=== PATIENT | female | born 1960 | race Caucasian/White ===

== ENCOUNTER → 2016-11-25 | Outpatient (CLI) | payer BC ==
[~2016-11-25] MED LIST: ASPI81TA85 PO; IBUP80TA PO; INVO300T PO; LEVOTAB10 PO; LISI10TA4 PO; METF750T PO; OMEP40CA2 PO; ONGL1TAB9 PO; PERC5TAB6 PO; VENL75CA47 PO; VENL75TA3 PO
--- NOTE | 2016-11-25 11:56 | REPMRS ---
Patient History The patient states she had a clinical breast exam in September 2016. Patient is postmenopausal. No known family history of cancer. Took hormonal contraceptives for 4 years. Digital Mammo Screening Bilat: November 25, 2016 - Exam #: [id number] Bilateral CC and MLO view(s) were taken. Technologist: Felecia Kramer, Technologist Prior study comparison: November 16, 2015, bilateral digital mammo screening bilat performed at [facility]. November 12, 2014, bilateral bilat screen digital mammo, performed at [facility] ([facility]). October 15, 2013, bilateral bilat screen digital mammo, performed at [facility] ([facility]). FINDINGS: The breast tissue is almost entirely fat. There has been no change in the appearance of the mammogram from the prior studies. There is no interval development of dominant mass, architectural distortion, or clustered microcalcification typical of malignancy. ASSESSMENT: BI-RADS/ACR category 1 mammogram. Negative. Recommendation Routine screening mammogram of both breasts in 1 year (for women over age 40). This mammogram was interpreted with the aid of an FDA-approved computer-aided dectection system. Electronically Signed By: Rusty Black MD 11/25/16 0660
== END ==
LOC: M RAD 10:34
PROVIDERS: ATTEND Obstetrics & Gynecology
DX: Z12.31 Encounter for screening mammogram for malignant neoplasm of breast (principal)

== ENCOUNTER 2017-01-06 10:11 | Emergency (ER) | payer BC ==
[2017-01-06] MEDS ORDERED: ASPIRIN 81 MG CHEW TABLET As Ordered ONE (10:35)
[2017-01-06] MEDS ORDERED: NITROGLYCERIN 0.4 MG SUBL TABLET As Ordered ONE (10:36)
[2017-01-06 10:42] LABS: BASO % 0.5 % (0.0-1.0); EOS # 0.2 K/mm3 (0.0-0.50); EOS % 2.9 % (0.0-3.0); LARGE UNSTAINED CELL # 0.1 K/mm3 (0.0-0.4); LARGE UNSTAINED CELL % 1.7 % (0.0-4.0); LYMPH # 2.4 K/mm3 (1.5-4.5); LYMPH % 41.8 % (24.0-44.0); MEAN CORPUSCULAR HEMOGLOBIN 29.3 pg (27.0-33.0); MEAN CORPUSCULAR VOLUME 88.9 fl (80.0-96.0); MONO # 0.2 K/mm3 (0.0-0.8); NEUTROPHILS # 2.7 K/mm3 (1.8-7.7); NEUTROPHILS % 49.1 % (36.0-66.0); PLATELET COUNT, AUTOMATED 233 k/mm3 (150-450); RED CELL DISTRIBUTION WIDTH 13.6 % (11.5-14.5); WHITE BLOOD COUNT 5.5 K/mm3 (4.0-10.0)
[2017-01-06 11:07] LABS: ALBUMIN 3.7 GM/DL (3.2-5.2); ALBUMIN/GLOBULIN RATIO 0.97 (1.00-1.93); ALKALINE PHOSPHATASE 85 U/L (45-117); ALT/SGPT 144 U/L (12-78); ANION GAP 10 MEQ/L (8-16); AST/SGOT 106 U/L (15-37); BILIRUBIN,DIRECT < 0.1 MG/DL (0.0-0.2); BILIRUBIN,TOTAL 0.3 MG/DL (0.2-1.0); BLOOD UREA NITROGEN 9 MG/DL (7-18); CALCIUM LEVEL 9.1 MG/DL (8.5-10.1); CARBON DIOXIDE LEVEL 26 MEQ/L (21-32); CHLORIDE LEVEL 105 MEQ/L (98-107); CREATININE FOR GFR 0.53 MG/DL (0.55-1.02); GLOMERULAR FILTRATION RATE > 60.0 (>51); GLUCOSE, FASTING 102 MG/DL (70-105); POTASSIUM SERUM 3.7 MEQ/L (3.5-5.1); SODIUM LEVEL 141 MEQ/L (136-145); TOTAL PROTEIN 7.5 GM/DL (6.4-8.2)
--- NOTE | 2017-01-06 11:26 | REP ---
clinical: Chest pain . Comparison: 03/13/2012 . Findings: The mediastinum and cardiac silhouette are stable and within normal limits for portable technique. The lung leung are clear without acute consolidation, effusion, or pneumothorax. Skeletal structures are intact. Impression: Normal portable chest x-ray Signed by Khang Beck MD 01/06/2017 11:17 A
[2017-01-06] MEDS ORDERED: GI COCKTAIL 50ML BTL(HYOSCYAMINE/MAALOX/LIDOCAINE VISCOUS)(1:3:1) As Ordered ONE (11:31)
--- NOTE | 2017-01-06 15:24 | ECGEPIP ---
Stationary ECG Study [facility] - ED Test Date: 2017-01-06 Pat Name: ADRIA ADHIKARI Department: Room: - Gender: F Student Life Advisor: hernandez : 1960 Requested By: Jose Daniel Baker Order Number: [id number] Reading MD: Deanne Gonsales Measurements Intervals [place] Rate: 72 P: 53 ND: 154 QRS: 28 QRSD: 91 T: 42 QT: 388 QTc: 427 Interpretive Statements SINUS RHYTHM NSTTW ABNORMALITY NO PRIOR FOR COMPARISON Electronically Signed On 01-06-2017 15:23:50 EST by Deanne Gonsales
--- NOTE | 2017-01-06 16:26 | EDDOCDS ---
Nurse's Notes [facility] Name: Adria Healy Age: 56 yrs Sex: Female : 1960 Arrival Date: 01/06/2017 Time: 10:11 Bed 15 Private MD: Diagnosis: Chest pain, unspecified;Gastro-esophageal reflux disease Presentation: 01/06 10:15 Presenting complaint: Patient states: chest pain across chest started an hour ago. srm radiates to back. no SOB. Aspirin was not taken prior to arrival. Adult Sepsis Screening: The patient does not have new or worsening altered mentation. Patient's respiratory rate is less than 22. Systolic blood pressure is greater than 100. Patient has a qSOFA score of 0- Negative Sepsis Screen. Suicide/Homicide risk assessment- the patient denies having any suicidal and/or homicidal ideations and does not present with any other emotional, behavioral or mental health complaints. Status: Patient is not a food service assistant or dependent. Transition of care: patient was not received from another setting of care. 10:15 Acuity: YOUSUF Level 2 srm 10:15 Method Of Arrival: Walkin/Carried/Asstd srm Triage Assessment: 10:25 General: Appears in no apparent distress, Behavior is appropriate for age, cooperative. srm Pain: Pain currently is 6 out of 10 on a pain scale. Cardiovascular: Chest pain is described as Pain is 6 out of 10 on a pain scale. radiates back episodes are continuous began 1 hour prior to arrival. 16:24 Pt Declines HIV testing. 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 Xyzal 5 mg oral tab 1 tab once daily 2. Singulair 10 mg Oral tab 1 tab once daily 3. omeprazole 40 mg Oral cpDR once daily 4. lisinopril 10 mg Oral tab 1 tab once daily 5. metformin 750 mg Oral Tb24 3 tabs once daily 6. Effexor XR 75 mg Oral cp24 1 cap once daily 7. aspirin 81 mg Oral tbef daily 8. Trulicity 1.5 mg/0.5 mL subcutaneous pnij once wkly - PMHx: Diabetes - NIDDM: controlled; Hypertension; GERD; mood swings; Seasonal Allergies; - PSHx: Hysterectomy; Cholecystectomy; left knee surgery; - The history from nurses notes was reviewed: and I agree with what is documented. - Social history: Smoking status: Patient states former smoker of tobacco. No barriers to communication noted, The patient speaks fluent Kazakh, Speaks appropriately for age. - Family history: Not pertinent, Pertinent for heart disease. - : The pt / caregiver states he / she is not on anticoagulants. Home medication list is obtained from the patient. - Hospitalizations: : No recent hospitalization is reported. - Exposure Risk Screening:: None identified. - Immunization history:: All immunizations up-to-date. - Social history:: the patient is a non-smoker, the patient does not drink alcohol. Screenin:25 Screening information is obtained from the patient. Fall risk: No risks identified. srm Assistance ADL's: requires no assistance with activities of daily living. Abuse/DV Screen: The patient / caregiver reports he/she is: not in a situation that causes fear, pain or injury. Nutritional screening: No deficits noted. Advance Directives: Currently, there is no health care proxy. There is no active DNR order. There is no Power of Reverberatory Furnace Supervisor. home support is adequate. Assessment: 10:41 General: Appears in no apparent distress, comfortable, Behavior is appropriate for age, srm cooperative. Neurological: Level of Consciousness is awake, alert. Cardiovascular: Rhythm is sinus rhythm Chest pain is described as mild, Pain is 4 out of 10 on a pain scale. radiates to left back. Respiratory: Airway is patent Respiratory effort is even, unlabored, Respiratory pattern is regular, symmetrical, Breath sounds are clear. Derm: Skin is pink, warm & dry. 11:34 General: Appears in no apparent distress, comfortable, Behavior is appropriate for age, js13 cooperative. Neurological: Level of Consciousness is awake, alert. Cardiovascular: Rhythm is sinus rhythm Chest pain is denied. Respiratory: Airway is patent Respiratory effort is even, unlabored, Respiratory pattern is regular, symmetrical. Derm: No deficits noted. Skin is pink, warm & dry. 12:16 Adult Sepsis Screening: The patient does not have new or worsening altered mentation. js13 Patient's respiratory rate is less than 22. Systolic blood pressure is greater than 100. Patient has a qSOFA score of 0- Negative Sepsis Screen. General: Appears in no apparent distress, comfortable, Behavior is appropriate for age, cooperative. Neurological: Level of Consciousness is awake, alert. Cardiovascular: Rhythm is sinus rhythm Chest pain is denied. Respiratory: Airway is patent Respiratory effort is even, unlabored, Respiratory pattern is regular, symmetrical. Derm: Skin is pink, warm & dry. 13:25 General: Appears in no apparent distress, comfortable, Behavior is appropriate for age, js13 cooperative. Neurological: Level of Consciousness is awake, alert. Cardiovascular: Rhythm is sinus rhythm Chest pain is denied. Respiratory: Airway is patent Respiratory effort is even, unlabored, Respiratory pattern is regular, symmetrical. Derm: Skin is pink, warm & dry. 15:20 Adult Sepsis Screening: The patient does not have new or worsening altered mentation. js13 Patient's respiratory rate is less than 22. Systolic blood pressure is greater than 100. Patient has a qSOFA score of 0- Negative Sepsis Screen. General: Appears in no apparent distress, comfortable, Behavior is appropriate for age, cooperative. Neurological: Level of Consciousness is awake, alert. Cardiovascular: Rhythm is sinus rhythm Chest pain is denied. Respiratory: Airway is patent Respiratory effort is even, unlabored, Respiratory pattern is regular, symmetrical. Derm: Skin is pink, warm & dry. 16:21 General: Appears in no apparent distress, comfortable, Behavior is appropriate for age, js13 cooperative. Neurological: Level of Consciousness is awake, alert. Cardiovascular: Rhythm is sinus rhythm Chest pain is denied. Respiratory: Airway is patent Respiratory effort is even, unlabored, Respiratory pattern is regular, symmetrical. Derm: Skin is pink, warm & dry. Vital Signs: 10:30 BP 159 / 80 RA Sitting; Pulse 68; Resp 18; Temp 97.9(O); Pulse Ox 100% on R/A; Weight srm 86.18 kg (R); Height 5 ft. (152.40 cm) (R); 10:38 BP 144 / 76 (auto/); srm 10:38 Pulse 72 MON; Resp 14; Pulse Ox 95% on R/A; srm 10:53 BP 134 / 73 (auto/); js13 10:53 Pulse 70 MON; Resp 14; Pulse Ox 98% on R/A; js13 11:08 BP 127 / 69 (auto/); js13 11:08 Pulse 68 MON; Resp 14; Pulse Ox 97% on R/A; js13 11:23 BP 121 / 74 (auto/); js13 11:23 Pulse 66 MON; Resp 14; Pulse Ox 98% on R/A; js13 11:38 BP 132 / 83 (auto/); js13 11:38 Pulse 66 MON; Resp 14; Pulse Ox 95% on R/A; js13 11:53 BP 130 / 81 (auto/); js13 11:53 Pulse 64 MON; Resp 14; Pulse Ox 98% on R/A; js13 12:08 BP 161 / 91 (auto/); js13 12:08 Pulse 64 MON; Resp 14; Pulse Ox 98% on R/A; js13 12:23 BP 158 / 90 (auto/); js13 12:23 Pulse 66 MON; Resp 14; Pulse Ox 98% on R/A; js13 12:38 BP 150 / 94 (auto/); js13 12:38 Pulse 62 MON; Resp 14; Pulse Ox 94% on R/A; js13 12:53 BP 132 / 76 (auto/); js13 12:53 Pulse 66 MON; Resp 14; Pulse Ox 95% on R/A; js13 13:08 BP 131 / 77 (auto/); js13 13:08 Pulse 64 MON; Resp 14; Pulse Ox 94% on R/A; js13 13:23 BP 129 / 78 (auto/); js13 13:23 Pulse 66 MON; Resp 14; Pulse Ox 94% on R/A; js13 13:38 BP 119 / 67 (auto/); js13 13:38 Pulse 62 MON; Resp 14; Pulse Ox 94% on R/A; js13 13:53 BP 118 / 64 (auto/); js13 13:53 Pulse 72 MON; Resp 14; Pulse Ox 95% on R/A; js13 14:08 BP 121 / 67 (auto/); js13 14:08 Pulse 62 MON; Resp 14; Pulse Ox 95% on R/A; js13 14:23 BP 122 / 66 (auto/); js13 14:23 Pulse 60 MON; Resp 14; Pulse Ox 94% on R/A; js13 14:38 BP 123 / 69 (auto/); js13 14:38 Pulse 62 MON; Resp 14; Pulse Ox 95% on R/A; js13 14:53 BP 130 / 76 (auto/); js13 14:53 Pulse 64 MON; Resp 14; Pulse Ox 96% on R/A; js13 15:09 BP 123 / 75 (auto/); js13 15:09 Pulse 70 MON; Resp 14; Pulse Ox 94% on R/A; js13 15:23 BP 131 / 76 (auto/); js13 15:23 Pulse 70 MON; Resp 14; Pulse Ox 94% on R/A; js13 15:38 BP 110 / 58 (auto/); js13 15:38 Pulse 60 MON; Resp 14; Pulse Ox 96% on R/A; js13 15:53 BP 118 / 65 (auto/); js13 15:53 Pulse 62 MON; Resp 14; Pulse Ox 95% on R/A; js13 16:08 BP 122 / 65 (auto/); js13 16:08 Pulse 66 MON; Resp 14; Pulse Ox 96% on R/A; js13 10:30 Body Mass Index 37.11 (86.18 kg, 152.40 cm) [facility] ED Course: 10:13 Patient visited by Shai Hdez. mm15 10:13 Patient moved to Waiting mm15 10:15 Kiki Leahy,AYLIN is Primary Nurse. jo3 10:15 Patient moved to 15 jo3 10:16 Triage Initiated [facility] 10:17 Jose Daniel Littlejohn MD is Attending Physician. pc 10:20 EKG done. (by ED staff). Reviewed by Jose Daniel Littlejohn MD. nb2 10:22 Patient visited by Sarah Moss. nb2 10:25 The patient / caregiver is instructed regarding the plan of care and ED course. srm Accompanied by Family Member, Patient has correct armband on for positive identification. Placed in gown. Bed in low position. Call light in reach. Side rails up X 1. alarm security or surveillance monitor on. Pulse ox on. NIBP on. 10:26 Patient visited by Collette Ruiz RN. srm 10:29 Patient visited by Jose Daniel Littlejohn MD. pc 10:30 Patient visited by Collette Ruiz RN. [facility] 10:38 Inserted saline lock: 18 gauge in left antecubital area and blood collected. The [facility] patient tolerated the procedure well. No procedures done that require assistance. Labs drawn. (by ED staff). Sent per order to lab. 10:43 Patient visited by Collette Ruiz RN. [facility] 10:48 [facility] Payment Agreement was scanned into [employer] and attached to record. lg 11:35 Patient visited by Kiki Leahy RN. js13 11:58 portable chest Returned. EDMS 12:18 Patient visited by Kiki Leahy RN. js13 13:26 Patient visited by Kiki Leahy RN. js13 14:59 Patient visited by Jose Daniel Littlejohn MD. pc 15:13 EKG done. (by ED staff). Reviewed by Jose Daniel Littlejohn MD. jrd 15:13 CARDIAC MARKER PANEL Sent. jrd 15:22 Patient visited by Kiki Leahy RN. js13 15:57 Abhijit Mcguire MD is Referral Physician. pc 16:00 Williams Fontenot MD is Referral Physician. pc 16:07 EKG-ADULT Returned. EDMS 16:08 Discontinued IV lock intact, bleeding controlled, pressure dressing applied, No js13 redness/swelling at site. Administered Medications: 10:40 Drug: Aspirin 324 mg [aspirin 81 mg chewable tablet (4 tabs)] Route: PO; srm 11:07 Follow up: Response: No Adverse Reaction js13 10:40 Drug: Nitrostat 0.4 mg [Nitrostat 0.4 mg sublingual tablet (1 tabs)] Route: Sublingual; srm 10:50 Follow up: Patient states pain stays at a 4 when it comes. Patient denies pain at this js13 time. 11:34 Drug: GI Cocktail - (Alum-Mag Hydroxide-Simeth Suspension 225 mg-200 mg-25 mg/5 mL 30 js13 ml, Lidocaine Liquid 2 % 10 ml, Hyoscyamine Liquid 10 ml) Route: PO; 12:05 Follow up: Response: No significant change. js13 Intake: RT: 11:28 Intubation:. js Order Results: Lab Order: Basic Metabolic Profile; SPEC'M 01/06/17 10:32 Test: GLUCOSE, FASTING; Value: 102; Range: 70-105; Units: MG/DL; Status: F Test: BLOOD UREA NITROGEN; Value: 9; Range: 7-18; Units: MG/DL; Status: F Test: CREATININE FOR GFR; Value: 0.53; Range: 0.55-1.02; Abnormal: Below low normal; Units: MG/DL; Status: F Test: GLOMERULAR FILTRATION RATE; Value: > 60.0; Range: >51; Status: F Test: SODIUM LEVEL; Value: 141; Range: 136-145; Units: MEQ/L; Status: F Test: POTASSIUM SERUM; Value: 3.7; Range: 3.5-5.1; Units: MEQ/L; Status: F Test: CHLORIDE LEVEL; Value: 105; Range: 98-107; Units: MEQ/L; Status: F Test: CARBON DIOXIDE LEVEL; Value: 26; Range: 21-32; Units: MEQ/L; Status: F Test: ANION GAP; Value: 10; Range: 8-16; Units: MEQ/L; Status: F Test: CALCIUM LEVEL; Value: 9.1; Range: 8.5-10.1; Units: MG/DL; Status: F Test Note: ; Units are mL/min/1.73 m2 Chronic Kidney Disease Staging per NKF: Stage I & II GFR >=60 Normal to Mildly Decreased Stage III GFR 30-59 Moderately Decreased Stage IV GFR 15-29 Severely Decreased Stage V GFR <15 Very Little GFR Left ESRD GFR <15 on FABRIC WORKER LEADER Lab Order: CBC with Diff; SPEC'M 01/06/17 10:32 Test: WHITE BLOOD COUNT; Value: 5.5; Range: 4.0-10.0; Units: K/mm3; Status: F Test: RED BLOOD COUNT; Value: 4.38; Range: 4.00-5.40; Units: M/mm3; Status: F Test: HEMOGLOBIN; Value: 12.8; Range: 12.0-16.0; Units: g/dl; Status: F Test: HEMATOCRIT; Value: 38.9; Range: 36.0-47.0; Units: %; Status: F Test: MEAN CORPUSCULAR VOLUME; Value: 88.9; Range: 80.0-96.0; Units: fl; Status: F Test: MEAN CORPUSCULAR HEMOGLOBIN; Value: 29.3; Range: 27.0-33.0; Units: pg; Status: F Test: MEAN CORPUSCULAR HGB CONC; Value: 33.0; Range: 32.0-36.5; Units: g/dl; Status: F Test: RED CELL DISTRIBUTION WIDTH; Value: 13.6; Range: 11.5-14.5; Units: %; Status: F Test: PLATELET COUNT, AUTOMATED; Value: 233; Range: 150-450; Units: k/mm3; Status: F Test: NEUTROPHILS %; Value: 49.1; Range: 36.0-66.0; Units: %; Status: F Test: LYMPH %; Value: 41.8; Range: 24.0-44.0; Units: %; Status: F Test: MONO %; Value: 4.0; Range: 0.0-5.0; Units: %; Status: F Test: EOS %; Value: 2.9; Range: 0.0-3.0; Units: %; Status: F Test: BASO %; Value: 0.5; Range: 0.0-1.0; Units: %; Status: F Test: LARGE UNSTAINED CELL %; Value: 1.7; Range: 0.0-4.0; Units: %; Status: F Test: NEUTROPHILS #; Value: 2.7; Range: 1.8-7.7; Units: K/mm3; Status: F Test: LYMPH #; Value: 2.4; Range: 1.5-4.5; Units: K/mm3; Status: F Test: MONO #; Value: 0.2; Range: 0.0-0.8; Units: K/mm3; Status: F Test: EOS #; Value: 0.2; Range: 0.0-0.50; Units: K/mm3; Status: F Test: BASO #; Value: 0.0; Range: 0.0-0.2; Units: K/mm3; Status: F Test: LARGE UNSTAINED CELL #; Value: 0.1; Range: 0.0-0.4; Units: K/mm3; Status: F Lab Order: Cardiac Injury Profile; SPEC'M 01/06/17 10:32 Test: CPK CREATINE PHOSPHOKINASE; Value: 148; Range: 26-192; Units: U/L; Status: F Test: CK-MB VALUE MASS; Value: 1.0; Range: 0.0-3.6; Units: NG/ML; Status: F Test: MB/CK RELATIVE INDEX; Value: 0.67; Range: < OR =4; Status: F Test Note: ; DIAGNOSIS CRITERIA MMB ng/ml Relative Index (RI) NON-AMI < or = 5 N/A MACIEL ZONE > 5 < or = 4 AMI > 5 > 4 Lab Order: Troponin; [facility] 01/06/17 10:32 Test: TROPONIN I; Value: < 0.02; Range: < 0.10; Units: NG/ML; Status: F Test Note: ; Troponin I Reference Interval for Siemens Clutter LOCI: 99th Percentile= 0.00-0.045 ng/ml Risk Stratification: <= 0.10 ng/ml Decreased Risk for Adverse Clinical Events. 0.10-1.50 ng/ml Increased Risk for Adverse Clinical Events. Evaluation of additional criterion and/or repeat testing in 2-6 hours is suggested to rule out myocardial damage. >= 1.50 ng/ml Indicative of Myocardial Injury. Lab Order: Liver Profile; [facility] 01/06/17 10:32 Test: AST/SGOT; Value: 106; Range: 15-37; Abnormal: Above high normal; Units: U/L; Status: F Test: ALT/SGPT; Value: 144; Range: 12-78; Abnormal: Above high normal; Units: U/L; Status: F Test: ALKALINE PHOSPHATASE; Value: 85; Range: 45-117; Units: U/L; Status: F Test: BILIRUBIN,TOTAL; Value: 0.3; Range: 0.2-1.0; Units: MG/DL; Status: F Test: BILIRUBIN,DIRECT; Value: < 0.1; Range: 0.0-0.2; Units: MG/DL; Status: F Test: TOTAL PROTEIN; Value: 7.5; Range: 6.4-8.2; Units: GM/DL; Status: F Test: ALBUMIN; Value: 3.7; Range: 3.2-5.2; Units: GM/DL; Status: F Test: ALBUMIN/GLOBULIN RATIO; Value: 0.97; Range: 1.00-1.93; Abnormal: Below low normal; Status: F Lab Order: Lipase; [facility] 01/06/17 10:32 Test: LIPASE; Value: 412; Range: 73-393; Abnormal: Above high normal; Units: U/L; Status: F Lab Order: CARDIAC MARKER PANEL; [facility] 01/06/17 15:11 Test: CPK CREATINE PHOSPHOKINASE; Value: 129; Range: 26-192; Units: U/L; Status: F Test: CK-MB VALUE MASS; Value: 1.0; Range: 0.0-3.6; Units: NG/ML; Status: F Test: MB/CK RELATIVE INDEX; Value: 0.77; Range: < OR =4; Status: F Test: TROPONIN I; Value: < 0.02; Range: < 0.10; Units: NG/ML; Status: F Test Note: ; DIAGNOSIS CRITERIA MMB ng/ml Relative Index (RI) NON-AMI < or = 5 N/A MACIEL ZONE > 5 < or = 4 AMI > 5 > 4 Radiology Order: EKG-ADULT Test: EKG-ADULT REASON FOR EXAMINATION: Chest Pain; Stationary ECG Study; [facility] - ED; ; Test Date: 2017-01-06; [facility] Department:; Room: -; Gender: F Shift Superintendent: hernandez; : 1960 Requested By: Jose Daniel Baker; Order Number: [id number] Reading MD: Deanne Gonsales; Measurements; Intervals [place]; Rate: 72 P: 53; WI: 154 QRS: 28; QRSD: 91 T: 42; QT: 388; QTc: 427; Interpretive Statements; SINUS RHYTHM; NSTTW ABNORMALITY; NO PRIOR FOR COMPARISON; Electronically Signed On 01-06-2017 15:23:50 EST by Deanne Gonsales; Radiology Order: portable chest Test: portable chest REASON FOR EXAMINATION: Chest Pain; clinical: Chest pain .; ; Comparison: 03/13/2012 .; ; Findings:; The mediastinum and cardiac silhouette are stable and within normal limits for; portable technique. The lung leung are clear without acute consolidation,; effusion, or pneumothorax. Skeletal structures are intact.; ; Impression:; Normal portable chest x-ray; ; ; Signed by; Khang Beck MD 01/06/2017 11:17 A; Outcome: 15:57 Discharge ordered by Provider. pc 16:08 Discharge Assessment: Patient awake, alert and oriented x 3. No cognitive and/or js13 functional deficits noted. Patient verbalized understanding of disposition instructions. patient administered narcotics - no. The following High Risk Discharge criteria are identified: None. Discharged to home ambulatory. Condition: stable. Discharge instructions given to patient, Instructed on discharge instructions, follow up and referral plans. Demonstrated understanding of instructions, Pt was receptive of discharge instructions/ teaching. No special radiology studies were completed. Property :Personal belongings accompany Pt. 16:24 Patient left the ED. js13 Signatures: Dispatcher [employer] EDMS Jose Daniel Littlejohn MD MD pc Michelson, Staci RN RN srm Poppy Davis, Cole Ellington lg, Jennifer, RN RN Kiki Tripp RN RN js13 Shai Hdez mm15 Lorenzo Keith PCA CUTTING PRESSMAN d Sarah Moss2 Corrections: (The following items were deleted from the chart) 10:45 10:41 General: Appears in no apparent distress, Behavior is appropriate for age, js13 cooperative, srm MTDD
--- NOTE | 2017-01-06 16:26 | EDDOCDS ---
Physician Documentation [facility] Name: Jessica Healy Age: 56 yrs Sex: Female : 1960 Arrival Date: 01/06/2017 Time: 10:11 Bed 15 Private MD: Disposition: 01/06 15:56 Critical Care: Critical care not applicable. pc Disposition: 01/06/17 15:57 Discharged to Home/Self Care. Impression: Chest pain, unspecified, Gastro-esophageal reflux disease. - Condition is Stable. - Discharge Instructions: Nonspecific Chest Pain. - Medication Reconciliation, Local Pharmacy Hours form. - Follow up: Abhijit Mcguire MD; When: Call to arrange an appointment; Reason: Further diagnostic work-up, Recheck today's complaints, To establish care. Follow up: Williams Fontenot MD; When: Call to arrange an appointment; Reason: Continuance of care. - Problem is new. - Symptoms have improved. HPI: 10:51 This 56 yrs old Female presents to ER via Walkin/Carried/Asstd with pc complaints of Chest Pain. 10:51 The history is obtained from the patient. Symptoms began suddenly at 09:00. Symptoms pc are ongoing but are improving. Symptoms occurred while at rest. She was sitting at her desk, with no recent exertion. At its worst, the symptoms were a 5 out of 10. In the emergency department, the symptoms are a 1 out of 10. The chest pain is described as a pressure, a tightness. It is located primarily in the substernal area. The pain radiates around the left chest wall to her mid-back. The chest pain was associated with no other symptoms. 10:52 The symptoms are aggravated by nothing. The symptoms are alleviated by nothing. The pc patient's known risk factors for coronary artery disease include: diabetes, high cholesterol, hypertension. The patient has experienced a previous episode, approximately 7 years ago, and the symptoms today are exactly the same, and was diagnosed with GERD. The patient has been recently seen by their primary care provider, for a routine, regularly scheduled appointment. Historical: - Allergies: Cefzil; - Home Meds: 1. Xyzal 5 mg oral tab 1 tab once daily 2. Singulair 10 mg Oral tab 1 tab once daily 3. omeprazole 40 mg Oral cpDR once daily 4. lisinopril 10 mg Oral tab 1 tab once daily 5. metformin 750 mg Oral Tb24 3 tabs once daily 6. Effexor XR 75 mg Oral cp24 1 cap once daily 7. aspirin 81 mg Oral tbef daily 8. Trulicity 1.5 mg/0.5 mL subcutaneous pnij once wkly - PMHx: Diabetes - NIDDM: controlled; Hypertension; GERD; mood swings; Seasonal Allergies; - PSHx: Hysterectomy; Cholecystectomy; left knee surgery; - The history from nurses notes was reviewed: and I agree with what is documented. - Social history: Smoking status: Patient states former smoker of tobacco. No barriers to communication noted, The patient speaks fluent Pashto, Speaks appropriately for age. - Family history: Not pertinent, Pertinent for heart disease. - : The pt / caregiver states he / she is not on anticoagulants. Home medication list is obtained from the patient. - Hospitalizations: : No recent hospitalization is reported. - Exposure Risk Screening:: None identified. - Immunization history:: All immunizations up-to-date. - Social history:: the patient is a non-smoker, the patient does not drink alcohol. 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 The cardiovascular, respiratory, pc gastrointestinal and neurological components are also addressed in the HPI. Exam: 10:52 General Appearance: alert, no acute distress. pc 10:52 ENT: ear, nose and throat normal, pharynx normal. 10:52 Neck: supple, non-tender, no masses are appreciated, no carotid bruits. 10:52 Respiratory: no respiratory distress, normal breath sounds, chest non-tender. 10:52 Cardiovascular: regular pulse rate, regular heart rhythm, normal heart sounds, equal and full pulses bilaterally. 10:52 Abdomen: soft, non-tender, no organomegaly, normal bowel sounds. 10:52 Skin: skin color is normal, warm, dry. 10:52 Extremities: The extremities have a grossly normal appearance, are non-tender, without acute ROM abnormalities. 10:52 Neuro: alert, oriented to person, place and time, cranial nerves normal as tested, no motor deficits, no sensory deficits. 10:52 Psych: normal mood. Vital Signs: 10:30 BP 159 / 80 RA Sitting; Pulse 68; Resp 18; Temp 97.9(O); Pulse Ox 100% on R/A; Weight srm 86.18 kg / 189.99 lbs (R); Height 5 ft. (152.40 cm) (R); 10:38 BP 144 / 76 (auto/); srm 10:38 Pulse 72 MON; Resp 14; Pulse Ox 95% on R/A; srm 10:53 BP 134 / 73 (auto/); js13 10:53 Pulse 70 MON; Resp 14; Pulse Ox 98% on R/A; js13 11:08 BP 127 / 69 (auto/); js13 11:08 Pulse 68 MON; Resp 14; Pulse Ox 97% on R/A; js13 11:23 BP 121 / 74 (auto/); js13 11:23 Pulse 66 MON; Resp 14; Pulse Ox 98% on R/A; js13 11:38 BP 132 / 83 (auto/); js13 11:38 Pulse 66 MON; Resp 14; Pulse Ox 95% on R/A; js13 11:53 BP 130 / 81 (auto/); js13 11:53 Pulse 64 MON; Resp 14; Pulse Ox 98% on R/A; js13 12:08 BP 161 / 91 (auto/); js13 12:08 Pulse 64 MON; Resp 14; Pulse Ox 98% on R/A; js13 12:23 BP 158 / 90 (auto/); js13 12:23 Pulse 66 MON; Resp 14; Pulse Ox 98% on R/A; js13 12:38 BP 150 / 94 (auto/); js13 12:38 Pulse 62 MON; Resp 14; Pulse Ox 94% on R/A; js13 12:53 BP 132 / 76 (auto/); js13 12:53 Pulse 66 MON; Resp 14; Pulse Ox 95% on R/A; js13 13:08 BP 131 / 77 (auto/); js13 13:08 Pulse 64 MON; Resp 14; Pulse Ox 94% on R/A; js13 13:23 BP 129 / 78 (auto/); js13 13:23 Pulse 66 MON; Resp 14; Pulse Ox 94% on R/A; js13 13:38 BP 119 / 67 (auto/); js13 13:38 Pulse 62 MON; Resp 14; Pulse Ox 94% on R/A; js13 13:53 BP 118 / 64 (auto/); js13 13:53 Pulse 72 MON; Resp 14; Pulse Ox 95% on R/A; js13 14:08 BP 121 / 67 (auto/); js13 14:08 Pulse 62 MON; Resp 14; Pulse Ox 95% on R/A; js13 14:23 BP 122 / 66 (auto/); js13 14:23 Pulse 60 MON; Resp 14; Pulse Ox 94% on R/A; js13 14:38 BP 123 / 69 (auto/); js13 14:38 Pulse 62 MON; Resp 14; Pulse Ox 95% on R/A; js13 14:53 BP 130 / 76 (auto/); js13 14:53 Pulse 64 MON; Resp 14; Pulse Ox 96% on R/A; js13 15:09 BP 123 / 75 (auto/); js13 15:09 Pulse 70 MON; Resp 14; Pulse Ox 94% on R/A; js13 15:23 BP 131 / 76 (auto/); js13 15:23 Pulse 70 MON; Resp 14; Pulse Ox 94% on R/A; js13 15:38 BP 110 / 58 (auto/); js13 15:38 Pulse 60 MON; Resp 14; Pulse Ox 96% on R/A; js13 15:53 BP 118 / 65 (auto/); js13 15:53 Pulse 62 MON; Resp 14; Pulse Ox 95% on R/A; js13 16:08 BP 122 / 65 (auto/); js13 16:08 Pulse 66 MON; Resp 14; Pulse Ox 96% on R/A; js13 10:30 Body Mass Index 37.11 (86.18 kg, 152.40 cm) srm MDM: 10:15 ECG WITH READING ER PHYS+CARDIAG ordered. EDMS 10:30 Aspirin Chewable Tablet 324 mg PO once ordered. pc 10:30 Pulmonary Nurse Practitioner/Pulse Ox/q 30 min VS ordered. pc 10:30 IV Saline Lock ordered. pc 10:30 Rhythm Strip to chart ordered. pc 10:30 Nitrostat 0.4 mg Sublingual once ordered. pc 10:31 Basic Metabolic Profile Ordered. EDMS 10:31 CBC with Diff Ordered. EDMS 10:31 Cardiac Injury Profile Ordered. EDMS 10:31 Troponin Ordered. EDMS 10:31 Liver Profile Ordered. EDMS 10:31 Lipase Ordered. EDMS 10:32 portable chest Ordered. EDMS 10:41 Financial registration complete. lg 10:48 [place] [place] Agreement was scanned into [employer] and attached to record. lg 10:50 Test interpretation: EKG. pc 10:52 Differential diagnosis: acute myocardial infarction, esophagitis, gastroesophageal pc reflux disease (GERD), pancreatitis, unstable angina. Plan: labs, EKG, imaging, meds. The patient was medicated with aspirin in the Emergency Department. 11:05 CBC with Diff Reviewed. pc 11:30 Basic Metabolic Profile Reviewed. pc 11:30 Liver Profile Reviewed. pc 11:30 Lipase Reviewed. pc 11:30 Cardiac Injury Profile Reviewed. pc 11:30 Troponin Reviewed. pc 11:31 GI Cocktail - (Alum-Mag Hydroxide-Simeth 30 ml, Lidocaine 10 ml, Hyoscyamine 10 ml) PO pc once; Pre-mixed 50mL unit dose ordered. 11:31 Redraw CIP &Troponin (put time in details section) ordered. pc 11:31 Repeat EKG (put time details section) ordered. pc 11:39 Repeat EKG (put time details section) complete. lbd 11:39 Redraw CIP &Troponin (put time in details section) complete. lbd 11:42 ECG WITH READING ER PHYS ordered. EDMS 11:42 CARDIAC MARKER PANEL Ordered. EDMS 15:17 Test interpretation: EKG. pc 15:53 CARDIAC MARKER PANEL Reviewed. pc 15:53 portable chest Reviewed. pc 15:56 Data reviewed: old medical records, vital signs, nurses notes, EKG(s), lab test pc results, all radiology studies and available results. Test interpretation: LAB - all labs as ordered have been reviewed, interpreted and considered in the overall management of the clinical presentation; X-RAY - interpreted by Radiologist and personally reviewed, 1 view chest no acute disease. The patient has been re-examined and re-evaluated. The patient's symptoms have markedly improved after treatment. Physician consultation: Dr. Abhijit Mcguire MD regarding patient's condition, and advises the medications/treatment as provided. and agrees with the treatment provided and advises the discharge plans as outlined. Disposition: The historical points, examination findings, and any diagnostic results supporting the provided diagnosis, were discussed with the patient or legal guardian. The need for outpatient follow up with the provider listed on their discharge instructions was discussed. They were encouraged to return to [facility], or the nearest ED, if symptoms worsen/persist, or for any other questions/concerns. EC:50 Rate is 72 beats/min. Rhythm is regular, Normal Sinus Rhythm. QRS [place] is Normal. [place] pc interval is normal. QRS interval is normal. QT interval is normal. No Q waves. T waves are Normal. No ST changes noted. Clinical impression: Normal Sinus Rhythm. 15:17 Rate is 67 beats/min. Rhythm is regular, Normal Sinus Rhythm. QRS [place] is Normal. [place] pc interval is normal. QRS interval is normal. QT interval is normal. No Q waves. T waves are Normal. No ST changes noted. Clinical impression: Normal Sinus Rhythm. Administered Medications: 10:40 Drug: Aspirin 324 mg [aspirin 81 mg chewable tablet (4 tabs)] Route: PO; [facility] 11:07 Follow up: Response: No Adverse Reaction js13 10:40 Drug: Nitrostat 0.4 mg [Nitrostat 0.4 mg sublingual tablet (1 tabs)] Route: Sublingual; [facility] 10:50 Follow up: Patient states pain stays at a 4 when it comes. Patient denies pain at this js13 time. 11:34 Drug: GI Cocktail - (Alum-Mag Hydroxide-Simeth Suspension 225 mg-200 mg-25 mg/5 mL 30 js13 ml, Lidocaine Liquid 2 % 10 ml, Hyoscyamine Liquid 10 ml) Route: PO; 12:05 Follow up: Response: No significant change. js13 Signatures: Dispatcher [employer] EDMS Jose Daniel Littlejohn MD MD pc Daly, Linda, Graphic Art Sales Representative Unit lbd Collette Ruiz RN RN [facility] Poppy Davis, Reg Reg lg Kiki Leahy RN RN [id number] The chart was reviewed and I authenticate all verbal orders and agree with the evaluation and treatment provided.Attachments: 10:48 [place] Payment Agreement lg MTDD
--- NOTE | 2017-01-07 07:22 | ECGEPIP ---
Stationary ECG Study [facility] - ED Test Date: 2017-01-06 Pat Name: ADRIA ADHIKARI Department: Room: - Gender: F Production Tech: alejandra : 1960 Requested By: Jose Daniel Baker Order Number: [id number] Reading MD: Jose Daniel Littlejohn Measurements Intervals [place] Rate: 67 P: 46 AL: 152 QRS: 22 QRSD: 92 T: 36 QT: 418 QTc: 443 Interpretive Statements SINUS RHYTHM POSSIBLE LEFT ATRIAL ENLARGEMENT Electronically Signed On 01-07-2017 7:22:09 EST by Jose Daniel Littlejohn
--- NOTE | 2017-01-08 17:25 | EDDOCDS ---
Physician Documentation [facility] Name: Jessica Healy Age: 56 yrs Sex: Female : 1960 Arrival Date: 01/06/2017 Time: 10:11 Bed 15 Private MD: Disposition: 01/06 15:56 Critical Care: Critical care not applicable. pc Disposition: 01/06/17 15:57 Discharged to Home/Self Care. Impression: Chest pain, unspecified, Gastro-esophageal reflux disease. - Condition is Stable. - Discharge Instructions: Nonspecific Chest Pain. - Medication Reconciliation, Local Pharmacy Hours form. - Follow up: Abhijit Mcguire MD; When: Call to arrange an appointment; Reason: Further diagnostic work-up, Recheck today's complaints, To establish care. Follow up: Williams Fontenot MD; When: Call to arrange an appointment; Reason: Continuance of care. - Problem is new. - Symptoms have improved. HPI: 10:51 This 56 yrs old Female presents to ER via Walkin/Carried/Asstd with pc complaints of Chest Pain. 10:51 The history is obtained from the patient. Symptoms began suddenly at 09:00. Symptoms pc are ongoing but are improving. Symptoms occurred while at rest. She was sitting at her desk, with no recent exertion. At its worst, the symptoms were a 5 out of 10. In the emergency department, the symptoms are a 1 out of 10. The chest pain is described as a pressure, a tightness. It is located primarily in the substernal area. The pain radiates around the left chest wall to her mid-back. The chest pain was associated with no other symptoms. 10:52 The symptoms are aggravated by nothing. The symptoms are alleviated by nothing. The pc patient's known risk factors for coronary artery disease include: diabetes, high cholesterol, hypertension. The patient has experienced a previous episode, approximately 7 years ago, and the symptoms today are exactly the same, and was diagnosed with GERD. The patient has been recently seen by their primary care provider, for a routine, regularly scheduled appointment. Historical: - Allergies: Cefzil; - Home Meds: 1. Xyzal 5 mg oral tab 1 tab once daily 2. Singulair 10 mg Oral tab 1 tab once daily 3. omeprazole 40 mg Oral cpDR once daily 4. lisinopril 10 mg Oral tab 1 tab once daily 5. metformin 750 mg Oral Tb24 3 tabs once daily 6. Effexor XR 75 mg Oral cp24 1 cap once daily 7. aspirin 81 mg Oral tbef daily 8. Trulicity 1.5 mg/0.5 mL subcutaneous pnij once wkly - PMHx: Diabetes - NIDDM: controlled; Hypertension; GERD; mood swings; Seasonal Allergies; - PSHx: Hysterectomy; Cholecystectomy; left knee surgery; - The history from nurses notes was reviewed: and I agree with what is documented. - Social history: Smoking status: Patient states former smoker of tobacco. No barriers to communication noted, The patient speaks fluent Mongolian, Speaks appropriately for age. - Family history: Not pertinent, Pertinent for heart disease. - : The pt / caregiver states he / she is not on anticoagulants. Home medication list is obtained from the patient. - Hospitalizations: : No recent hospitalization is reported. - Exposure Risk Screening:: None identified. - Immunization history:: All immunizations up-to-date. - Social history:: the patient is a non-smoker, the patient does not drink alcohol. 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 The cardiovascular, respiratory, pc gastrointestinal and neurological components are also addressed in the HPI. Exam: 10:52 General Appearance: alert, no acute distress. pc 10:52 ENT: ear, nose and throat normal, pharynx normal. 10:52 Neck: supple, non-tender, no masses are appreciated, no carotid bruits. 10:52 Respiratory: no respiratory distress, normal breath sounds, chest non-tender. 10:52 Cardiovascular: regular pulse rate, regular heart rhythm, normal heart sounds, equal and full pulses bilaterally. 10:52 Abdomen: soft, non-tender, no organomegaly, normal bowel sounds. 10:52 Skin: skin color is normal, warm, dry. 10:52 Extremities: The extremities have a grossly normal appearance, are non-tender, without acute ROM abnormalities. 10:52 Neuro: alert, oriented to person, place and time, cranial nerves normal as tested, no motor deficits, no sensory deficits. 10:52 Psych: normal mood. Vital Signs: 10:30 BP 159 / 80 RA Sitting; Pulse 68; Resp 18; Temp 97.9(O); Pulse Ox 100% on R/A; Weight srm 86.18 kg / 189.99 lbs (R); Height 5 ft. (152.40 cm) (R); 10:38 BP 144 / 76 (auto/); srm 10:38 Pulse 72 MON; Resp 14; Pulse Ox 95% on R/A; srm 10:53 BP 134 / 73 (auto/); js13 10:53 Pulse 70 MON; Resp 14; Pulse Ox 98% on R/A; js13 11:08 BP 127 / 69 (auto/); js13 11:08 Pulse 68 MON; Resp 14; Pulse Ox 97% on R/A; js13 11:23 BP 121 / 74 (auto/); js13 11:23 Pulse 66 MON; Resp 14; Pulse Ox 98% on R/A; js13 11:38 BP 132 / 83 (auto/); js13 11:38 Pulse 66 MON; Resp 14; Pulse Ox 95% on R/A; js13 11:53 BP 130 / 81 (auto/); js13 11:53 Pulse 64 MON; Resp 14; Pulse Ox 98% on R/A; js13 12:08 BP 161 / 91 (auto/); js13 12:08 Pulse 64 MON; Resp 14; Pulse Ox 98% on R/A; js13 12:23 BP 158 / 90 (auto/); js13 12:23 Pulse 66 MON; Resp 14; Pulse Ox 98% on R/A; js13 12:38 BP 150 / 94 (auto/); js13 12:38 Pulse 62 MON; Resp 14; Pulse Ox 94% on R/A; js13 12:53 BP 132 / 76 (auto/); js13 12:53 Pulse 66 MON; Resp 14; Pulse Ox 95% on R/A; js13 13:08 BP 131 / 77 (auto/); js13 13:08 Pulse 64 MON; Resp 14; Pulse Ox 94% on R/A; js13 13:23 BP 129 / 78 (auto/); js13 13:23 Pulse 66 MON; Resp 14; Pulse Ox 94% on R/A; js13 13:38 BP 119 / 67 (auto/); js13 13:38 Pulse 62 MON; Resp 14; Pulse Ox 94% on R/A; js13 13:53 BP 118 / 64 (auto/); js13 13:53 Pulse 72 MON; Resp 14; Pulse Ox 95% on R/A; js13 14:08 BP 121 / 67 (auto/); js13 14:08 Pulse 62 MON; Resp 14; Pulse Ox 95% on R/A; js13 14:23 BP 122 / 66 (auto/); js13 14:23 Pulse 60 MON; Resp 14; Pulse Ox 94% on R/A; js13 14:38 BP 123 / 69 (auto/); js13 14:38 Pulse 62 MON; Resp 14; Pulse Ox 95% on R/A; js13 14:53 BP 130 / 76 (auto/); js13 14:53 Pulse 64 MON; Resp 14; Pulse Ox 96% on R/A; js13 15:09 BP 123 / 75 (auto/); js13 15:09 Pulse 70 MON; Resp 14; Pulse Ox 94% on R/A; js13 15:23 BP 131 / 76 (auto/); js13 15:23 Pulse 70 MON; Resp 14; Pulse Ox 94% on R/A; js13 15:38 BP 110 / 58 (auto/); js13 15:38 Pulse 60 MON; Resp 14; Pulse Ox 96% on R/A; js13 15:53 BP 118 / 65 (auto/); js13 15:53 Pulse 62 MON; Resp 14; Pulse Ox 95% on R/A; js13 16:08 BP 122 / 65 (auto/); js13 16:08 Pulse 66 MON; Resp 14; Pulse Ox 96% on R/A; js13 10:30 Body Mass Index 37.11 (86.18 kg, 152.40 cm) srm MDM: 10:15 ECG WITH READING ER PHYS+CARDIAG ordered. EDMS 10:30 Aspirin Chewable Tablet 324 mg PO once ordered. pc 10:30 Solar Energy Engineer/Pulse Ox/q 30 min VS ordered. pc 10:30 IV Saline Lock ordered. pc 10:30 Rhythm Strip to chart ordered. pc 10:30 Nitrostat 0.4 mg Sublingual once ordered. pc 10:31 Basic Metabolic Profile Ordered. EDMS 10:31 CBC with Diff Ordered. EDMS 10:31 Cardiac Injury Profile Ordered. EDMS 10:31 Troponin Ordered. EDMS 10:31 Liver Profile Ordered. EDMS 10:31 Lipase Ordered. EDMS 10:32 portable chest Ordered. EDMS 10:41 Financial registration complete. lg 10:48 [facility] [place] Payment Agreement was scanned into [employer] and attached to record. lg 10:50 Test interpretation: EKG. pc 10:52 Differential diagnosis: acute myocardial infarction, esophagitis, gastroesophageal pc reflux disease (GERD), pancreatitis, unstable angina. Plan: labs, EKG, imaging, meds. The patient was medicated with aspirin in the Emergency Department. 11:05 CBC with Diff Reviewed. pc 11:30 Basic Metabolic Profile Reviewed. pc 11:30 Liver Profile Reviewed. pc 11:30 Lipase Reviewed. pc 11:30 Cardiac Injury Profile Reviewed. pc 11:30 Troponin Reviewed. pc 11:31 GI Cocktail - (Alum-Mag Hydroxide-Simeth 30 ml, Lidocaine 10 ml, Hyoscyamine 10 ml) PO pc once; Pre-mixed 50mL unit dose ordered. 11:31 Redraw CIP &Troponin (put time in details section) ordered. pc 11:31 Repeat EKG (put time details section) ordered. pc 11:39 Repeat EKG (put time details section) complete. lbd 11:39 Redraw CIP &Troponin (put time in details section) complete. lbd 11:42 ECG WITH READING ER PHYS ordered. EDMS 11:42 CARDIAC MARKER PANEL Ordered. EDMS 15:17 Test interpretation: EKG. pc 15:53 CARDIAC MARKER PANEL Reviewed. pc 15:53 portable chest Reviewed. pc 15:56 Data reviewed: old medical records, vital signs, nurses notes, EKG(s), lab test pc results, all radiology studies and available results. Test interpretation: LAB - all labs as ordered have been reviewed, interpreted and considered in the overall management of the clinical presentation; X-RAY - interpreted by Radiologist and personally reviewed, 1 view chest no acute disease. The patient has been re-examined and re-evaluated. The patient's symptoms have markedly improved after treatment. Physician consultation: Dr. Abhijit Mcguire MD regarding patient's condition, and advises the medications/treatment as provided. and agrees with the treatment provided and advises the discharge plans as outlined. Disposition: The historical points, examination findings, and any diagnostic results supporting the provided diagnosis, were discussed with the patient or legal guardian. The need for outpatient follow up with the provider listed on their discharge instructions was discussed. They were encouraged to return to [facility], or the nearest ED, if symptoms worsen/persist, or for any other questions/concerns. EC:50 Rate is 72 beats/min. Rhythm is regular, Normal Sinus Rhythm. QRS [place] is Normal. [place] pc interval is normal. QRS interval is normal. QT interval is normal. No Q waves. T waves are Normal. No ST changes noted. Clinical impression: Normal Sinus Rhythm. 15:17 Rate is 67 beats/min. Rhythm is regular, Normal Sinus Rhythm. QRS [place] is Normal. PA pc interval is normal. QRS interval is normal. QT interval is normal. No Q waves. T waves are Normal. No ST changes noted. Clinical impression: Normal Sinus Rhythm. Administered Medications: 10:40 Drug: Aspirin 324 mg [aspirin 81 mg chewable tablet (4 tabs)] Route: PO; [facility] 11:07 Follow up: Response: No Adverse Reaction js13 10:40 Drug: Nitrostat 0.4 mg [Nitrostat 0.4 mg sublingual tablet (1 tabs)] Route: Sublingual; [facility] 10:50 Follow up: Patient states pain stays at a 4 when it comes. Patient denies pain at this js13 time. 11:34 Drug: GI Cocktail - (Alum-Mag Hydroxide-Simeth Suspension 225 mg-200 mg-25 mg/5 mL 30 js13 ml, Lidocaine Liquid 2 % 10 ml, Hyoscyamine Liquid 10 ml) Route: PO; 12:05 Follow up: Response: No significant change. js13 Signatures: Dispatcher [employer] EDMS Jose Daniel Littlejohn MD MD pc Daly, Linda, Machine Biller Unit lbd Collette Ruiz RN RN [facility] Poppy Davis, Reg Reg lg Kiki Leahy RN RN [email or web address] The chart was reviewed and I authenticate all verbal orders and agree with the evaluation and treatment provided.Attachments: 10:48 [facility] Payment Agreement lg Chart Complete MTDD
--- NOTE | 2017-01-08 17:26 | EDDOCDS ---
Physician Documentation [facility] Name: Jessica Healy Age: 56 yrs Sex: Female : 1960 Arrival Date: 01/06/2017 Time: 10:11 Bed 15 Private MD: Disposition: 01/06 15:56 Critical Care: Critical care not applicable. pc Disposition: 01/06/17 15:57 Discharged to Home/Self Care. Impression: Chest pain, unspecified, Gastro-esophageal reflux disease. - Condition is Stable. - Discharge Instructions: Nonspecific Chest Pain. - Medication Reconciliation, Local Pharmacy Hours form. - Follow up: Abhijit Mcguire MD; When: Call to arrange an appointment; Reason: Further diagnostic work-up, Recheck today's complaints, To establish care. Follow up: Williams Fontenot MD; When: Call to arrange an appointment; Reason: Continuance of care. - Problem is new. - Symptoms have improved. HPI: 10:51 This 56 yrs old Female presents to ER via Walkin/Carried/Asstd with pc complaints of Chest Pain. 10:51 The history is obtained from the patient. Symptoms began suddenly at 09:00. Symptoms pc are ongoing but are improving. Symptoms occurred while at rest. She was sitting at her desk, with no recent exertion. At its worst, the symptoms were a 5 out of 10. In the emergency department, the symptoms are a 1 out of 10. The chest pain is described as a pressure, a tightness. It is located primarily in the substernal area. The pain radiates around the left chest wall to her mid-back. The chest pain was associated with no other symptoms. 10:52 The symptoms are aggravated by nothing. The symptoms are alleviated by nothing. The pc patient's known risk factors for coronary artery disease include: diabetes, high cholesterol, hypertension. The patient has experienced a previous episode, approximately 7 years ago, and the symptoms today are exactly the same, and was diagnosed with GERD. The patient has been recently seen by their primary care provider, for a routine, regularly scheduled appointment. Historical: - Allergies: Cefzil; - Home Meds: 1. Xyzal 5 mg oral tab 1 tab once daily 2. Singulair 10 mg Oral tab 1 tab once daily 3. omeprazole 40 mg Oral cpDR once daily 4. lisinopril 10 mg Oral tab 1 tab once daily 5. metformin 750 mg Oral Tb24 3 tabs once daily 6. Effexor XR 75 mg Oral cp24 1 cap once daily 7. aspirin 81 mg Oral tbef daily 8. Trulicity 1.5 mg/0.5 mL subcutaneous pnij once wkly - PMHx: Diabetes - NIDDM: controlled; Hypertension; GERD; mood swings; Seasonal Allergies; - PSHx: Hysterectomy; Cholecystectomy; left knee surgery; - The history from nurses notes was reviewed: and I agree with what is documented. - Social history: Smoking status: Patient states former smoker of tobacco. No barriers to communication noted, The patient speaks fluent Maltese, Speaks appropriately for age. - Family history: Not pertinent, Pertinent for heart disease. - : The pt / caregiver states he / she is not on anticoagulants. Home medication list is obtained from the patient. - Hospitalizations: : No recent hospitalization is reported. - Exposure Risk Screening:: None identified. - Immunization history:: All immunizations up-to-date. - Social history:: the patient is a non-smoker, the patient does not drink alcohol. 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 The cardiovascular, respiratory, pc gastrointestinal and neurological components are also addressed in the HPI. Exam: 10:52 General Appearance: alert, no acute distress. pc 10:52 ENT: ear, nose and throat normal, pharynx normal. 10:52 Neck: supple, non-tender, no masses are appreciated, no carotid bruits. 10:52 Respiratory: no respiratory distress, normal breath sounds, chest non-tender. 10:52 Cardiovascular: regular pulse rate, regular heart rhythm, normal heart sounds, equal and full pulses bilaterally. 10:52 Abdomen: soft, non-tender, no organomegaly, normal bowel sounds. 10:52 Skin: skin color is normal, warm, dry. 10:52 Extremities: The extremities have a grossly normal appearance, are non-tender, without acute ROM abnormalities. 10:52 Neuro: alert, oriented to person, place and time, cranial nerves normal as tested, no motor deficits, no sensory deficits. 10:52 Psych: normal mood. Vital Signs: 10:30 BP 159 / 80 RA Sitting; Pulse 68; Resp 18; Temp 97.9(O); Pulse Ox 100% on R/A; Weight srm 86.18 kg / 189.99 lbs (R); Height 5 ft. (152.40 cm) (R); 10:38 BP 144 / 76 (auto/); srm 10:38 Pulse 72 MON; Resp 14; Pulse Ox 95% on R/A; srm 10:53 BP 134 / 73 (auto/); js13 10:53 Pulse 70 MON; Resp 14; Pulse Ox 98% on R/A; js13 11:08 BP 127 / 69 (auto/); js13 11:08 Pulse 68 MON; Resp 14; Pulse Ox 97% on R/A; js13 11:23 BP 121 / 74 (auto/); js13 11:23 Pulse 66 MON; Resp 14; Pulse Ox 98% on R/A; js13 11:38 BP 132 / 83 (auto/); js13 11:38 Pulse 66 MON; Resp 14; Pulse Ox 95% on R/A; js13 11:53 BP 130 / 81 (auto/); js13 11:53 Pulse 64 MON; Resp 14; Pulse Ox 98% on R/A; js13 12:08 BP 161 / 91 (auto/); js13 12:08 Pulse 64 MON; Resp 14; Pulse Ox 98% on R/A; js13 12:23 BP 158 / 90 (auto/); js13 12:23 Pulse 66 MON; Resp 14; Pulse Ox 98% on R/A; js13 12:38 BP 150 / 94 (auto/); js13 12:38 Pulse 62 MON; Resp 14; Pulse Ox 94% on R/A; js13 12:53 BP 132 / 76 (auto/); js13 12:53 Pulse 66 MON; Resp 14; Pulse Ox 95% on R/A; js13 13:08 BP 131 / 77 (auto/); js13 13:08 Pulse 64 MON; Resp 14; Pulse Ox 94% on R/A; js13 13:23 BP 129 / 78 (auto/); js13 13:23 Pulse 66 MON; Resp 14; Pulse Ox 94% on R/A; js13 13:38 BP 119 / 67 (auto/); js13 13:38 Pulse 62 MON; Resp 14; Pulse Ox 94% on R/A; js13 13:53 BP 118 / 64 (auto/); js13 13:53 Pulse 72 MON; Resp 14; Pulse Ox 95% on R/A; js13 14:08 BP 121 / 67 (auto/); js13 14:08 Pulse 62 MON; Resp 14; Pulse Ox 95% on R/A; js13 14:23 BP 122 / 66 (auto/); js13 14:23 Pulse 60 MON; Resp 14; Pulse Ox 94% on R/A; js13 14:38 BP 123 / 69 (auto/); js13 14:38 Pulse 62 MON; Resp 14; Pulse Ox 95% on R/A; js13 14:53 BP 130 / 76 (auto/); js13 14:53 Pulse 64 MON; Resp 14; Pulse Ox 96% on R/A; js13 15:09 BP 123 / 75 (auto/); js13 15:09 Pulse 70 MON; Resp 14; Pulse Ox 94% on R/A; js13 15:23 BP 131 / 76 (auto/); js13 15:23 Pulse 70 MON; Resp 14; Pulse Ox 94% on R/A; js13 15:38 BP 110 / 58 (auto/); js13 15:38 Pulse 60 MON; Resp 14; Pulse Ox 96% on R/A; js13 15:53 BP 118 / 65 (auto/); js13 15:53 Pulse 62 MON; Resp 14; Pulse Ox 95% on R/A; js13 16:08 BP 122 / 65 (auto/); js13 16:08 Pulse 66 MON; Resp 14; Pulse Ox 96% on R/A; js13 10:30 Body Mass Index 37.11 (86.18 kg, 152.40 cm) srm MDM: 10:15 ECG WITH READING ER PHYS+CARDIAG ordered. EDMS 10:30 Aspirin Chewable Tablet 324 mg PO once ordered. pc 10:30 Senior Clinical Data Analyst/Pulse Ox/q 30 min VS ordered. pc 10:30 IV Saline Lock ordered. pc 10:30 Rhythm Strip to chart ordered. pc 10:30 Nitrostat 0.4 mg Sublingual once ordered. pc 10:31 Basic Metabolic Profile Ordered. EDMS 10:31 CBC with Diff Ordered. EDMS 10:31 Cardiac Injury Profile Ordered. EDMS 10:31 Troponin Ordered. EDMS 10:31 Liver Profile Ordered. EDMS 10:31 Lipase Ordered. EDMS 10:32 portable chest Ordered. EDMS 10:41 Financial registration complete. lg 10:48 [facility] Payment Agreement was scanned into [employer] and attached to record. lg 10:50 Test interpretation: EKG. pc 10:52 Differential diagnosis: acute myocardial infarction, esophagitis, gastroesophageal pc reflux disease (GERD), pancreatitis, unstable angina. Plan: labs, EKG, imaging, meds. The patient was medicated with aspirin in the Emergency Department. 11:05 CBC with Diff Reviewed. pc 11:30 Basic Metabolic Profile Reviewed. pc 11:30 Liver Profile Reviewed. pc 11:30 Lipase Reviewed. pc 11:30 Cardiac Injury Profile Reviewed. pc 11:30 Troponin Reviewed. pc 11:31 GI Cocktail - (Alum-Mag Hydroxide-Simeth 30 ml, Lidocaine 10 ml, Hyoscyamine 10 ml) PO pc once; Pre-mixed 50mL unit dose ordered. 11:31 Redraw CIP &Troponin (put time in details section) ordered. pc 11:31 Repeat EKG (put time details section) ordered. pc 11:39 Repeat EKG (put time details section) complete. lbd 11:39 Redraw CIP &Troponin (put time in details section) complete. lbd 11:42 ECG WITH READING ER PHYS ordered. EDMS 11:42 CARDIAC MARKER PANEL Ordered. EDMS 15:17 Test interpretation: EKG. pc 15:53 CARDIAC MARKER PANEL Reviewed. pc 15:53 portable chest Reviewed. pc 15:56 Data reviewed: old medical records, vital signs, nurses notes, EKG(s), lab test pc results, all radiology studies and available results. Test interpretation: LAB - all labs as ordered have been reviewed, interpreted and considered in the overall management of the clinical presentation; X-RAY - interpreted by Radiologist and personally reviewed, 1 view chest no acute disease. The patient has been re-examined and re-evaluated. The patient's symptoms have markedly improved after treatment. Physician consultation: Dr. Abhijit Mcguire MD regarding patient's condition, and advises the medications/treatment as provided. and agrees with the treatment provided and advises the discharge plans as outlined. Disposition: The historical points, examination findings, and any diagnostic results supporting the provided diagnosis, were discussed with the patient or legal guardian. The need for outpatient follow up with the provider listed on their discharge instructions was discussed. They were encouraged to return to [facility], or the nearest ED, if symptoms worsen/persist, or for any other questions/concerns. EC:50 Rate is 72 beats/min. Rhythm is regular, Normal Sinus Rhythm. QRS [place] is Normal. [place] pc interval is normal. QRS interval is normal. QT interval is normal. No Q waves. T waves are Normal. No ST changes noted. Clinical impression: Normal Sinus Rhythm. 15:17 Rate is 67 beats/min. Rhythm is regular, Normal Sinus Rhythm. QRS [place] is Normal. [place] pc interval is normal. QRS interval is normal. QT interval is normal. No Q waves. T waves are Normal. No ST changes noted. Clinical impression: Normal Sinus Rhythm. Administered Medications: 10:40 Drug: Aspirin 324 mg [aspirin 81 mg chewable tablet (4 tabs)] Route: PO; [facility] 11:07 Follow up: Response: No Adverse Reaction js13 10:40 Drug: Nitrostat 0.4 mg [Nitrostat 0.4 mg sublingual tablet (1 tabs)] Route: Sublingual; [facility] 10:50 Follow up: Patient states pain stays at a 4 when it comes. Patient denies pain at this js13 time. 11:34 Drug: GI Cocktail - (Alum-Mag Hydroxide-Simeth Suspension 225 mg-200 mg-25 mg/5 mL 30 js13 ml, Lidocaine Liquid 2 % 10 ml, Hyoscyamine Liquid 10 ml) Route: PO; 12:05 Follow up: Response: No significant change. js13 Signatures: Dispatcher [employer] EDMS Jose Daniel Littlejohn MD MD pc Daly, Linda, [employer] lbd Collette Ruiz RN RN [facility] Poppy Davis, Reg Reg lg Kiki Leahy RN RN [email or web address] The chart was reviewed and I authenticate all verbal orders and agree with the evaluation and treatment provided.Attachments: 10:48 [facility] Payment Agreement lg Chart Complete MTDD
--- NOTE | 2017-01-08 17:26 | EDDOCDS ---
Nurse's Notes [facility] Name: Jessica Adhikari Age: 56 yrs Sex: Female : 1960 Arrival Date: 01/06/2017 Time: 10:11 Bed 15 Private MD: Diagnosis: Chest pain, unspecified;Gastro-esophageal reflux disease Presentation: 01/06 10:15 Presenting complaint: Patient states: chest pain across chest started an hour ago. srm radiates to back. no SOB. Aspirin was not taken prior to arrival. Adult Sepsis Screening: The patient does not have new or worsening altered mentation. Patient's respiratory rate is less than 22. Systolic blood pressure is greater than 100. Patient has a qSOFA score of 0- Negative Sepsis Screen. Suicide/Homicide risk assessment- the patient denies having any suicidal and/or homicidal ideations and does not present with any other emotional, behavioral or mental health complaints. Status: Patient is not a automobile service advisor or dependent. Transition of care: patient was not received from another setting of care. 10:15 Acuity: YOUSUF Level 2 srm 10:15 Method Of Arrival: Walkin/Carried/Asstd srm Triage Assessment: 10:25 General: Appears in no apparent distress, Behavior is appropriate for age, cooperative. srm Pain: Pain currently is 6 out of 10 on a pain scale. Cardiovascular: Chest pain is described as Pain is 6 out of 10 on a pain scale. radiates back episodes are continuous began 1 hour prior to arrival. 16:24 Pt Declines HIV testing. 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 Xyzal 5 mg oral tab 1 tab once daily 2. Singulair 10 mg Oral tab 1 tab once daily 3. omeprazole 40 mg Oral cpDR once daily 4. lisinopril 10 mg Oral tab 1 tab once daily 5. metformin 750 mg Oral Tb24 3 tabs once daily 6. Effexor XR 75 mg Oral cp24 1 cap once daily 7. aspirin 81 mg Oral tbef daily 8. Trulicity 1.5 mg/0.5 mL subcutaneous pnij once wkly - PMHx: Diabetes - NIDDM: controlled; Hypertension; GERD; mood swings; Seasonal Allergies; - PSHx: Hysterectomy; Cholecystectomy; left knee surgery; - The history from nurses notes was reviewed: and I agree with what is documented. - Social history: Smoking status: Patient states former smoker of tobacco. No barriers to communication noted, The patient speaks fluent Turkish, Speaks appropriately for age. - Family history: Not pertinent, Pertinent for heart disease. - : The pt / caregiver states he / she is not on anticoagulants. Home medication list is obtained from the patient. - Hospitalizations: : No recent hospitalization is reported. - Exposure Risk Screening:: None identified. - Immunization history:: All immunizations up-to-date. - Social history:: the patient is a non-smoker, the patient does not drink alcohol. Screenin:25 Screening information is obtained from the patient. Fall risk: No risks identified. srm Assistance ADL's: requires no assistance with activities of daily living. Abuse/DV Screen: The patient / caregiver reports he/she is: not in a situation that causes fear, pain or injury. Nutritional screening: No deficits noted. Advance Directives: Currently, there is no health care proxy. There is no active DNR order. There is no Power of Facility Environmental Technician. home support is adequate. Assessment: 10:41 General: Appears in no apparent distress, comfortable, Behavior is appropriate for age, srm cooperative. Neurological: Level of Consciousness is awake, alert. Cardiovascular: Rhythm is sinus rhythm Chest pain is described as mild, Pain is 4 out of 10 on a pain scale. radiates to left back. Respiratory: Airway is patent Respiratory effort is even, unlabored, Respiratory pattern is regular, symmetrical, Breath sounds are clear. Derm: Skin is pink, warm & dry. 11:34 General: Appears in no apparent distress, comfortable, Behavior is appropriate for age, js13 cooperative. Neurological: Level of Consciousness is awake, alert. Cardiovascular: Rhythm is sinus rhythm Chest pain is denied. Respiratory: Airway is patent Respiratory effort is even, unlabored, Respiratory pattern is regular, symmetrical. Derm: No deficits noted. Skin is pink, warm & dry. 12:16 Adult Sepsis Screening: The patient does not have new or worsening altered mentation. js13 Patient's respiratory rate is less than 22. Systolic blood pressure is greater than 100. Patient has a qSOFA score of 0- Negative Sepsis Screen. General: Appears in no apparent distress, comfortable, Behavior is appropriate for age, cooperative. Neurological: Level of Consciousness is awake, alert. Cardiovascular: Rhythm is sinus rhythm Chest pain is denied. Respiratory: Airway is patent Respiratory effort is even, unlabored, Respiratory pattern is regular, symmetrical. Derm: Skin is pink, warm & dry. 13:25 General: Appears in no apparent distress, comfortable, Behavior is appropriate for age, js13 cooperative. Neurological: Level of Consciousness is awake, alert. Cardiovascular: Rhythm is sinus rhythm Chest pain is denied. Respiratory: Airway is patent Respiratory effort is even, unlabored, Respiratory pattern is regular, symmetrical. Derm: Skin is pink, warm & dry. 15:20 Adult Sepsis Screening: The patient does not have new or worsening altered mentation. js13 Patient's respiratory rate is less than 22. Systolic blood pressure is greater than 100. Patient has a qSOFA score of 0- Negative Sepsis Screen. General: Appears in no apparent distress, comfortable, Behavior is appropriate for age, cooperative. Neurological: Level of Consciousness is awake, alert. Cardiovascular: Rhythm is sinus rhythm Chest pain is denied. Respiratory: Airway is patent Respiratory effort is even, unlabored, Respiratory pattern is regular, symmetrical. Derm: Skin is pink, warm & dry. 16:21 General: Appears in no apparent distress, comfortable, Behavior is appropriate for age, js13 cooperative. Neurological: Level of Consciousness is awake, alert. Cardiovascular: Rhythm is sinus rhythm Chest pain is denied. Respiratory: Airway is patent Respiratory effort is even, unlabored, Respiratory pattern is regular, symmetrical. Derm: Skin is pink, warm & dry. Vital Signs: 10:30 BP 159 / 80 RA Sitting; Pulse 68; Resp 18; Temp 97.9(O); Pulse Ox 100% on R/A; Weight srm 86.18 kg (R); Height 5 ft. (152.40 cm) (R); 10:38 BP 144 / 76 (auto/); srm 10:38 Pulse 72 MON; Resp 14; Pulse Ox 95% on R/A; srm 10:53 BP 134 / 73 (auto/); js13 10:53 Pulse 70 MON; Resp 14; Pulse Ox 98% on R/A; js13 11:08 BP 127 / 69 (auto/); js13 11:08 Pulse 68 MON; Resp 14; Pulse Ox 97% on R/A; js13 11:23 BP 121 / 74 (auto/); js13 11:23 Pulse 66 MON; Resp 14; Pulse Ox 98% on R/A; js13 11:38 BP 132 / 83 (auto/); js13 11:38 Pulse 66 MON; Resp 14; Pulse Ox 95% on R/A; js13 11:53 BP 130 / 81 (auto/); js13 11:53 Pulse 64 MON; Resp 14; Pulse Ox 98% on R/A; js13 12:08 BP 161 / 91 (auto/); js13 12:08 Pulse 64 MON; Resp 14; Pulse Ox 98% on R/A; js13 12:23 BP 158 / 90 (auto/); js13 12:23 Pulse 66 MON; Resp 14; Pulse Ox 98% on R/A; js13 12:38 BP 150 / 94 (auto/); js13 12:38 Pulse 62 MON; Resp 14; Pulse Ox 94% on R/A; js13 12:53 BP 132 / 76 (auto/); js13 12:53 Pulse 66 MON; Resp 14; Pulse Ox 95% on R/A; js13 13:08 BP 131 / 77 (auto/); js13 13:08 Pulse 64 MON; Resp 14; Pulse Ox 94% on R/A; js13 13:23 BP 129 / 78 (auto/); js13 13:23 Pulse 66 MON; Resp 14; Pulse Ox 94% on R/A; js13 13:38 BP 119 / 67 (auto/); js13 13:38 Pulse 62 MON; Resp 14; Pulse Ox 94% on R/A; js13 13:53 BP 118 / 64 (auto/); js13 13:53 Pulse 72 MON; Resp 14; Pulse Ox 95% on R/A; js13 14:08 BP 121 / 67 (auto/); js13 14:08 Pulse 62 MON; Resp 14; Pulse Ox 95% on R/A; js13 14:23 BP 122 / 66 (auto/); js13 14:23 Pulse 60 MON; Resp 14; Pulse Ox 94% on R/A; js13 14:38 BP 123 / 69 (auto/); js13 14:38 Pulse 62 MON; Resp 14; Pulse Ox 95% on R/A; js13 14:53 BP 130 / 76 (auto/); js13 14:53 Pulse 64 MON; Resp 14; Pulse Ox 96% on R/A; js13 15:09 BP 123 / 75 (auto/); js13 15:09 Pulse 70 MON; Resp 14; Pulse Ox 94% on R/A; js13 15:23 BP 131 / 76 (auto/); js13 15:23 Pulse 70 MON; Resp 14; Pulse Ox 94% on R/A; js13 15:38 BP 110 / 58 (auto/); js13 15:38 Pulse 60 MON; Resp 14; Pulse Ox 96% on R/A; js13 15:53 BP 118 / 65 (auto/); js13 15:53 Pulse 62 MON; Resp 14; Pulse Ox 95% on R/A; js13 16:08 BP 122 / 65 (auto/); js13 16:08 Pulse 66 MON; Resp 14; Pulse Ox 96% on R/A; js13 10:30 Body Mass Index 37.11 (86.18 kg, 152.40 cm) [facility] ED Course: 10:13 Patient visited by Shai Hdez. mm15 10:13 Patient moved to Waiting mm15 10:15 Kiki Leahy,AYLIN is Primary Nurse. jo3 10:15 Patient moved to 15 jo3 10:16 Triage Initiated [facility] 10:17 Jose Daniel Littlejohn MD is Attending Physician. pc 10:20 EKG done. (by ED staff). Reviewed by Jose Daniel Littlejohn MD. nb2 10:22 Patient visited by Sarah Moss. nb2 10:25 The patient / caregiver is instructed regarding the plan of care and ED course. srm Accompanied by Family Member, Patient has correct armband on for positive identification. Placed in gown. Bed in low position. Call light in reach. Side rails up X 1. radiation monitor on. Pulse ox on. NIBP on. 10:26 Patient visited by Collette Ruiz RN. srm 10:29 Patient visited by Jose Daniel Littlejohn MD. pc 10:30 Patient visited by Collette Ruiz RN. [facility] 10:38 Inserted saline lock: 18 gauge in left antecubital area and blood collected. The [facility] patient tolerated the procedure well. No procedures done that require assistance. Labs drawn. (by ED staff). Sent per order to lab. 10:43 Patient visited by Collette Ruiz RN. [facility] 10:48 [facility] was scanned into [employer] and attached to record. lg 11:35 Patient visited by Kiki Leahy RN. js13 11:58 portable chest Returned. EDMS 12:18 Patient visited by Kiki Leahy RN. js13 13:26 Patient visited by Kiki Leahy RN. js13 14:59 Patient visited by Jose Daniel Littlejohn MD. pc 15:13 EKG done. (by ED staff). Reviewed by Jose Daniel Littlejohn MD. jrd 15:13 CARDIAC MARKER PANEL Sent. jrd 15:22 Patient visited by Kiki Leahy RN. js13 15:57 Abhijit Mcguire MD is Referral Physician. pc 16:00 Williams Fontenot MD is Referral Physician. pc 16:07 EKG-ADULT Returned. EDMS 16:08 Discontinued IV lock intact, bleeding controlled, pressure dressing applied, No js13 redness/swelling at site. 01/07 07:31 ECG WITH READING ER PHYS Returned. EDMS Administered Medications: 01/06 10:40 Drug: Aspirin 324 mg [aspirin 81 mg chewable tablet (4 tabs)] Route: PO; srm 11:07 Follow up: Response: No Adverse Reaction js13 10:40 Drug: Nitrostat 0.4 mg [Nitrostat 0.4 mg sublingual tablet (1 tabs)] Route: Sublingual; srm 10:50 Follow up: Patient states pain stays at a 4 when it comes. Patient denies pain at this js13 time. 11:34 Drug: GI Cocktail - (Alum-Mag Hydroxide-Simeth Suspension 225 mg-200 mg-25 mg/5 mL 30 js13 ml, Lidocaine Liquid 2 % 10 ml, Hyoscyamine Liquid 10 ml) Route: PO; 12:05 Follow up: Response: No significant change. js13 Intake: RT: 11:28 Intubation:. js Order Results: Lab Order: Basic Metabolic Profile; SPEC'M 01/06/17 10:32 Test: GLUCOSE, FASTING; Value: 102; Range: 70-105; Units: MG/DL; Status: F Test: BLOOD UREA NITROGEN; Value: 9; Range: 7-18; Units: MG/DL; Status: F Test: CREATININE FOR GFR; Value: 0.53; Range: 0.55-1.02; Abnormal: Below low normal; Units: MG/DL; Status: F Test: GLOMERULAR FILTRATION RATE; Value: > 60.0; Range: >51; Status: F Test: SODIUM LEVEL; Value: 141; Range: 136-145; Units: MEQ/L; Status: F Test: POTASSIUM SERUM; Value: 3.7; Range: 3.5-5.1; Units: MEQ/L; Status: F Test: CHLORIDE LEVEL; Value: 105; Range: 98-107; Units: MEQ/L; Status: F Test: CARBON DIOXIDE LEVEL; Value: 26; Range: 21-32; Units: MEQ/L; Status: F Test: ANION GAP; Value: 10; Range: 8-16; Units: MEQ/L; Status: F Test: CALCIUM LEVEL; Value: 9.1; Range: 8.5-10.1; Units: MG/DL; Status: F Test Note: ; Units are mL/min/1.73 m2 Chronic Kidney Disease Staging per NKF: Stage I & II GFR >=60 Normal to Mildly Decreased Stage III GFR 30-59 Moderately Decreased Stage IV GFR 15-29 Severely Decreased Stage V GFR <15 Very Little GFR Left ESRD GFR <15 on EMPLOYEE SERVICE OFFICER Lab Order: CBC with Diff; SPEC'M 01/06/17 10:32 Test: WHITE BLOOD COUNT; Value: 5.5; Range: 4.0-10.0; Units: K/mm3; Status: F Test: RED BLOOD COUNT; Value: 4.38; Range: 4.00-5.40; Units: M/mm3; Status: F Test: HEMOGLOBIN; Value: 12.8; Range: 12.0-16.0; Units: g/dl; Status: F Test: HEMATOCRIT; Value: 38.9; Range: 36.0-47.0; Units: %; Status: F Test: MEAN CORPUSCULAR VOLUME; Value: 88.9; Range: 80.0-96.0; Units: fl; Status: F Test: MEAN CORPUSCULAR HEMOGLOBIN; Value: 29.3; Range: 27.0-33.0; Units: pg; Status: F Test: MEAN CORPUSCULAR HGB CONC; Value: 33.0; Range: 32.0-36.5; Units: g/dl; Status: F Test: RED CELL DISTRIBUTION WIDTH; Value: 13.6; Range: 11.5-14.5; Units: %; Status: F Test: PLATELET COUNT, AUTOMATED; Value: 233; Range: 150-450; Units: k/mm3; Status: F Test: NEUTROPHILS %; Value: 49.1; Range: 36.0-66.0; Units: %; Status: F Test: LYMPH %; Value: 41.8; Range: 24.0-44.0; Units: %; Status: F Test: MONO %; Value: 4.0; Range: 0.0-5.0; Units: %; Status: F Test: EOS %; Value: 2.9; Range: 0.0-3.0; Units: %; Status: F Test: BASO %; Value: 0.5; Range: 0.0-1.0; Units: %; Status: F Test: LARGE UNSTAINED CELL %; Value: 1.7; Range: 0.0-4.0; Units: %; Status: F Test: NEUTROPHILS #; Value: 2.7; Range: 1.8-7.7; Units: K/mm3; Status: F Test: LYMPH #; Value: 2.4; Range: 1.5-4.5; Units: K/mm3; Status: F Test: MONO #; Value: 0.2; Range: 0.0-0.8; Units: K/mm3; Status: F Test: EOS #; Value: 0.2; Range: 0.0-0.50; Units: K/mm3; Status: F Test: BASO #; Value: 0.0; Range: 0.0-0.2; Units: K/mm3; Status: F Test: LARGE UNSTAINED CELL #; Value: 0.1; Range: 0.0-0.4; Units: K/mm3; Status: F Lab Order: Cardiac Injury Profile; SPEC'M 01/06/17 10:32 Test: CPK CREATINE PHOSPHOKINASE; Value: 148; Range: 26-192; Units: U/L; Status: F Test: CK-MB VALUE MASS; Value: 1.0; Range: 0.0-3.6; Units: NG/ML; Status: F Test: MB/CK RELATIVE INDEX; Value: 0.67; Range: < OR =4; Status: F Test Note: ; DIAGNOSIS CRITERIA MMB ng/ml Relative Index (RI) NON-AMI < or = 5 N/A MACIEL ZONE > 5 < or = 4 AMI > 5 > 4 Lab Order: Troponin; [facility] 01/06/17 10:32 Test: TROPONIN I; Value: < 0.02; Range: < 0.10; Units: NG/ML; Status: F Test Note: ; Troponin I Reference Interval for [employer] LOCI: 99th Percentile= 0.00-0.045 ng/ml Risk Stratification: <= 0.10 ng/ml Decreased Risk for Adverse Clinical Events. 0.10-1.50 ng/ml Increased Risk for Adverse Clinical Events. Evaluation of additional criterion and/or repeat testing in 2-6 hours is suggested to rule out myocardial damage. >= 1.50 ng/ml Indicative of Myocardial Injury. Lab Order: Liver Profile; [facility] 01/06/17 10:32 Test: AST/SGOT; Value: 106; Range: 15-37; Abnormal: Above high normal; Units: U/L; Status: F Test: ALT/SGPT; Value: 144; Range: 12-78; Abnormal: Above high normal; Units: U/L; Status: F Test: ALKALINE PHOSPHATASE; Value: 85; Range: 45-117; Units: U/L; Status: F Test: BILIRUBIN,TOTAL; Value: 0.3; Range: 0.2-1.0; Units: MG/DL; Status: F Test: BILIRUBIN,DIRECT; Value: < 0.1; Range: 0.0-0.2; Units: MG/DL; Status: F Test: TOTAL PROTEIN; Value: 7.5; Range: 6.4-8.2; Units: GM/DL; Status: F Test: ALBUMIN; Value: 3.7; Range: 3.2-5.2; Units: GM/DL; Status: F Test: ALBUMIN/GLOBULIN RATIO; Value: 0.97; Range: 1.00-1.93; Abnormal: Below low normal; Status: F Lab Order: Lipase; [facility] 01/06/17 10:32 Test: LIPASE; Value: 412; Range: 73-393; Abnormal: Above high normal; Units: U/L; Status: F Lab Order: CARDIAC MARKER PANEL; SPEC'M 01/06/17 15:11 Test: CPK CREATINE PHOSPHOKINASE; Value: 129; Range: 26-192; Units: U/L; Status: F Test: CK-MB VALUE MASS; Value: 1.0; Range: 0.0-3.6; Units: NG/ML; Status: F Test: MB/CK RELATIVE INDEX; Value: 0.77; Range: < OR =4; Status: F Test: TROPONIN I; Value: < 0.02; Range: < 0.10; Units: NG/ML; Status: F Test Note: ; DIAGNOSIS CRITERIA MMB ng/ml Relative Index (RI) NON-AMI < or = 5 N/A MACIEL ZONE > 5 < or = 4 AMI > 5 > 4 Radiology Order: EKG-ADULT Test: EKG-ADULT REASON FOR EXAMINATION: Chest Pain; Stationary ECG Study; [facility] - ED; ; Test Date: 2017-01-06; Pat Name: JESSICA ADHIKARI Department:; Room: -; Gender: F Stereoptician: hernandez; : 1960 Requested By: Jose Daniel Baker; Order Number: [id number] Reading MD: Deanne Gonsales; Measurements; Intervals [place]; Rate: 72 P: 53; TN: 154 QRS: 28; QRSD: 91 T: 42; QT: 388; QTc: 427; Interpretive Statements; SINUS RHYTHM; NSTTW ABNORMALITY; NO PRIOR FOR COMPARISON; Electronically Signed On 01-06-2017 15:23:50 EST by Deanne Gonsales; Radiology Order: portable chest Test: portable chest REASON FOR EXAMINATION: Chest Pain; clinical: Chest pain .; ; Comparison: 03/13/2012 .; ; Findings:; The mediastinum and cardiac silhouette are stable and within normal limits for; portable technique. The lung leung are clear without acute consolidation,; effusion, or pneumothorax. Skeletal structures are intact.; ; Impression:; Normal portable chest x-ray; ; ; Signed by; Khang Beck MD 01/06/2017 11:17 A; Radiology Order: ECG WITH READING ER PHYS Test: ECG WITH READING ER PHYS REASON FOR EXAMINATION: CHEST PAIN(REPEAT EKG AT 3P); Stationary ECG Study; [facility] - ED; ; Test Date: 2017-01-06; Pat Name: JESSICA ADHIKARI Department:; Room: -; Gender: F Stereoptician: alejandra; : 1960 Requested By: Jose Daniel Baker; Order Number: [id number] Reading MD: Jose Daniel Littlejohn; Measurements; Intervals [place]; Rate: 67 P: 46; TN: 152 QRS: 22; QRSD: 92 T: 36; QT: 418; QTc: 443; Interpretive Statements; SINUS RHYTHM; POSSIBLE LEFT ATRIAL ENLARGEMENT; ; Electronically Signed On 01-07-2017 7:22:09 EST by Jose Daniel Littlejohn; Outcome: 15:57 Discharge ordered by Provider. pc 16:08 Discharge Assessment: Patient awake, alert and oriented x 3. No cognitive and/or sabina13 functional deficits noted. Patient verbalized understanding of disposition instructions. patient administered narcotics - no. The following High Risk Discharge criteria are identified: None. Discharged to home ambulatory. Condition: stable. Discharge instructions given to patient, Instructed on discharge instructions, follow up and referral plans. Demonstrated understanding of instructions, Pt was receptive of discharge instructions/ teaching. No special radiology studies were completed. Property :Personal belongings accompany Pt. 16:24 Patient left the ED. js13 Signatures: Dispatcher [employer] EDMS Jose Daniel Littlejohn MD MD pc Michelson, Staci RN RN Poppy Porras, Cole Ellington lg, Jennifer, RN RN jo3 Sullivan, Jennifer, RN RN js13 Shai Hdez mm15 Lorenzo Keith PCA PCA jrd Baart, Nicole nb2 Corrections: (The following items were deleted from the chart) 10:45 10:41 General: Appears in no apparent distress, Behavior is appropriate for age, js13 cooperative, srm Chart Complete MTDD
--- NOTE | 2017-01-08 22:02 | EDDOCDS ---
Nurse's Notes [facility] Name: Jessica Adhikari Age: 56 yrs Sex: Female : 1960 Arrival Date: 01/06/2017 Time: 10:11 Bed 15 Private MD: Diagnosis: Chest pain, unspecified;Gastro-esophageal reflux disease Presentation: 01/06 10:15 Presenting complaint: Patient states: chest pain across chest started an hour ago. srm radiates to back. no SOB. Aspirin was not taken prior to arrival. Adult Sepsis Screening: The patient does not have new or worsening altered mentation. Patient's respiratory rate is less than 22. Systolic blood pressure is greater than 100. Patient has a qSOFA score of 0- Negative Sepsis Screen. Suicide/Homicide risk assessment- the patient denies having any suicidal and/or homicidal ideations and does not present with any other emotional, behavioral or mental health complaints. Status: Patient is not a director of cloud services or dependent. Transition of care: patient was not received from another setting of care. 10:15 Acuity: YOUSUF Level 2 srm 10:15 Method Of Arrival: Walkin/Carried/Asstd srm Triage Assessment: 10:25 General: Appears in no apparent distress, Behavior is appropriate for age, cooperative. srm Pain: Pain currently is 6 out of 10 on a pain scale. Cardiovascular: Chest pain is described as Pain is 6 out of 10 on a pain scale. radiates back episodes are continuous began 1 hour prior to arrival. 16:24 Pt Declines HIV testing. 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 Xyzal 5 mg oral tab 1 tab once daily 2. Singulair 10 mg Oral tab 1 tab once daily 3. omeprazole 40 mg Oral cpDR once daily 4. lisinopril 10 mg Oral tab 1 tab once daily 5. metformin 750 mg Oral Tb24 3 tabs once daily 6. Effexor XR 75 mg Oral cp24 1 cap once daily 7. aspirin 81 mg Oral tbef daily 8. Trulicity 1.5 mg/0.5 mL subcutaneous pnij once wkly - PMHx: Diabetes - NIDDM: controlled; Hypertension; GERD; mood swings; Seasonal Allergies; - PSHx: Hysterectomy; Cholecystectomy; left knee surgery; - The history from nurses notes was reviewed: and I agree with what is documented. - Social history: Smoking status: Patient states former smoker of tobacco. No barriers to communication noted, The patient speaks fluent German, Speaks appropriately for age. - Family history: Not pertinent, Pertinent for heart disease. - : The pt / caregiver states he / she is not on anticoagulants. Home medication list is obtained from the patient. - Hospitalizations: : No recent hospitalization is reported. - Exposure Risk Screening:: None identified. - Immunization history:: All immunizations up-to-date. - Social history:: the patient is a non-smoker, the patient does not drink alcohol. Screenin:25 Screening information is obtained from the patient. Fall risk: No risks identified. srm Assistance ADL's: requires no assistance with activities of daily living. Abuse/DV Screen: The patient / caregiver reports he/she is: not in a situation that causes fear, pain or injury. Nutritional screening: No deficits noted. Advance Directives: Currently, there is no health care proxy. There is no active DNR order. There is no Power of Credit Review Analyst. home support is adequate. Assessment: 10:41 General: Appears in no apparent distress, comfortable, Behavior is appropriate for age, srm cooperative. Neurological: Level of Consciousness is awake, alert. Cardiovascular: Rhythm is sinus rhythm Chest pain is described as mild, Pain is 4 out of 10 on a pain scale. radiates to left back. Respiratory: Airway is patent Respiratory effort is even, unlabored, Respiratory pattern is regular, symmetrical, Breath sounds are clear. Derm: Skin is pink, warm & dry. 11:34 General: Appears in no apparent distress, comfortable, Behavior is appropriate for age, js13 cooperative. Neurological: Level of Consciousness is awake, alert. Cardiovascular: Rhythm is sinus rhythm Chest pain is denied. Respiratory: Airway is patent Respiratory effort is even, unlabored, Respiratory pattern is regular, symmetrical. Derm: No deficits noted. Skin is pink, warm & dry. 12:16 Adult Sepsis Screening: The patient does not have new or worsening altered mentation. js13 Patient's respiratory rate is less than 22. Systolic blood pressure is greater than 100. Patient has a qSOFA score of 0- Negative Sepsis Screen. General: Appears in no apparent distress, comfortable, Behavior is appropriate for age, cooperative. Neurological: Level of Consciousness is awake, alert. Cardiovascular: Rhythm is sinus rhythm Chest pain is denied. Respiratory: Airway is patent Respiratory effort is even, unlabored, Respiratory pattern is regular, symmetrical. Derm: Skin is pink, warm & dry. 13:25 General: Appears in no apparent distress, comfortable, Behavior is appropriate for age, js13 cooperative. Neurological: Level of Consciousness is awake, alert. Cardiovascular: Rhythm is sinus rhythm Chest pain is denied. Respiratory: Airway is patent Respiratory effort is even, unlabored, Respiratory pattern is regular, symmetrical. Derm: Skin is pink, warm & dry. 15:20 Adult Sepsis Screening: The patient does not have new or worsening altered mentation. js13 Patient's respiratory rate is less than 22. Systolic blood pressure is greater than 100. Patient has a qSOFA score of 0- Negative Sepsis Screen. General: Appears in no apparent distress, comfortable, Behavior is appropriate for age, cooperative. Neurological: Level of Consciousness is awake, alert. Cardiovascular: Rhythm is sinus rhythm Chest pain is denied. Respiratory: Airway is patent Respiratory effort is even, unlabored, Respiratory pattern is regular, symmetrical. Derm: Skin is pink, warm & dry. 16:21 General: Appears in no apparent distress, comfortable, Behavior is appropriate for age, js13 cooperative. Neurological: Level of Consciousness is awake, alert. Cardiovascular: Rhythm is sinus rhythm Chest pain is denied. Respiratory: Airway is patent Respiratory effort is even, unlabored, Respiratory pattern is regular, symmetrical. Derm: Skin is pink, warm & dry. Vital Signs: 10:30 BP 159 / 80 RA Sitting; Pulse 68; Resp 18; Temp 97.9(O); Pulse Ox 100% on R/A; Weight srm 86.18 kg (R); Height 5 ft. (152.40 cm) (R); 10:38 BP 144 / 76 (auto/); srm 10:38 Pulse 72 MON; Resp 14; Pulse Ox 95% on R/A; srm 10:53 BP 134 / 73 (auto/); js13 10:53 Pulse 70 MON; Resp 14; Pulse Ox 98% on R/A; js13 11:08 BP 127 / 69 (auto/); js13 11:08 Pulse 68 MON; Resp 14; Pulse Ox 97% on R/A; js13 11:23 BP 121 / 74 (auto/); js13 11:23 Pulse 66 MON; Resp 14; Pulse Ox 98% on R/A; js13 11:38 BP 132 / 83 (auto/); js13 11:38 Pulse 66 MON; Resp 14; Pulse Ox 95% on R/A; js13 11:53 BP 130 / 81 (auto/); js13 11:53 Pulse 64 MON; Resp 14; Pulse Ox 98% on R/A; js13 12:08 BP 161 / 91 (auto/); js13 12:08 Pulse 64 MON; Resp 14; Pulse Ox 98% on R/A; js13 12:23 BP 158 / 90 (auto/); js13 12:23 Pulse 66 MON; Resp 14; Pulse Ox 98% on R/A; js13 12:38 BP 150 / 94 (auto/); js13 12:38 Pulse 62 MON; Resp 14; Pulse Ox 94% on R/A; js13 12:53 BP 132 / 76 (auto/); js13 12:53 Pulse 66 MON; Resp 14; Pulse Ox 95% on R/A; js13 13:08 BP 131 / 77 (auto/); js13 13:08 Pulse 64 MON; Resp 14; Pulse Ox 94% on R/A; js13 13:23 BP 129 / 78 (auto/); js13 13:23 Pulse 66 MON; Resp 14; Pulse Ox 94% on R/A; js13 13:38 BP 119 / 67 (auto/); js13 13:38 Pulse 62 MON; Resp 14; Pulse Ox 94% on R/A; js13 13:53 BP 118 / 64 (auto/); js13 13:53 Pulse 72 MON; Resp 14; Pulse Ox 95% on R/A; js13 14:08 BP 121 / 67 (auto/); js13 14:08 Pulse 62 MON; Resp 14; Pulse Ox 95% on R/A; js13 14:23 BP 122 / 66 (auto/); js13 14:23 Pulse 60 MON; Resp 14; Pulse Ox 94% on R/A; js13 14:38 BP 123 / 69 (auto/); js13 14:38 Pulse 62 MON; Resp 14; Pulse Ox 95% on R/A; js13 14:53 BP 130 / 76 (auto/); js13 14:53 Pulse 64 MON; Resp 14; Pulse Ox 96% on R/A; js13 15:09 BP 123 / 75 (auto/); js13 15:09 Pulse 70 MON; Resp 14; Pulse Ox 94% on R/A; js13 15:23 BP 131 / 76 (auto/); js13 15:23 Pulse 70 MON; Resp 14; Pulse Ox 94% on R/A; js13 15:38 BP 110 / 58 (auto/); js13 15:38 Pulse 60 MON; Resp 14; Pulse Ox 96% on R/A; js13 15:53 BP 118 / 65 (auto/); js13 15:53 Pulse 62 MON; Resp 14; Pulse Ox 95% on R/A; js13 16:08 BP 122 / 65 (auto/); js13 16:08 Pulse 66 MON; Resp 14; Pulse Ox 96% on R/A; js13 10:30 Body Mass Index 37.11 (86.18 kg, 152.40 cm) [facility] ED Course: 10:13 Patient visited by Shai Hdez. mm15 10:13 Patient moved to Waiting mm15 10:15 Kiki Leahy,AYLIN is Primary Nurse. jo3 10:15 Patient moved to 15 jo3 10:16 Triage Initiated [facility] 10:17 Jose Daniel Littlejohn MD is Attending Physician. pc 10:20 EKG done. (by ED staff). Reviewed by Jose Daniel Littlejohn MD. nb2 10:22 Patient visited by Sarah Moss. nb2 10:25 The patient / caregiver is instructed regarding the plan of care and ED course. srm Accompanied by Family Member, Patient has correct armband on for positive identification. Placed in gown. Bed in low position. Call light in reach. Side rails up X 1. vulcanizer rubber plate on. Pulse ox on. NIBP on. 10:26 Patient visited by Collette Ruiz RN. srm 10:29 Patient visited by Jose Daniel Littlejohn MD. pc 10:30 Patient visited by Collette Ruiz RN. [facility] 10:38 Inserted saline lock: 18 gauge in left antecubital area and blood collected. The [facility] patient tolerated the procedure well. No procedures done that require assistance. Labs drawn. (by ED staff). Sent per order to lab. 10:43 Patient visited by Collette Ruiz RN. [facility] 10:48 [facility] [place] Payment Agreement was scanned into [employer] and attached to record. lg 11:35 Patient visited by Kiki Leahy RN. js13 11:58 portable chest Returned. EDMS 12:18 Patient visited by Kiki Leahy RN. js13 13:26 Patient visited by Kiki Leahy RN. js13 14:59 Patient visited by Jose Daniel Littlejohn MD. pc 15:13 EKG done. (by ED staff). Reviewed by Jose Daniel Littlejohn MD. jrd 15:13 CARDIAC MARKER PANEL Sent. jrd 15:22 Patient visited by Kiki Leahy RN. js13 15:57 Abhijit Mcguire MD is Referral Physician. pc 16:00 Williams Fontenot MD is Referral Physician. pc 16:07 EKG-ADULT Returned. EDMS 16:08 Discontinued IV lock intact, bleeding controlled, pressure dressing applied, No js13 redness/swelling at site. 01/07 07:31 ECG WITH READING ER PHYS Returned. EDMS Administered Medications: 01/06 10:40 Drug: Aspirin 324 mg [aspirin 81 mg chewable tablet (4 tabs)] Route: PO; srm 11:07 Follow up: Response: No Adverse Reaction js13 10:40 Drug: Nitrostat 0.4 mg [Nitrostat 0.4 mg sublingual tablet (1 tabs)] Route: Sublingual; srm 10:50 Follow up: Patient states pain stays at a 4 when it comes. Patient denies pain at this js13 time. 11:34 Drug: GI Cocktail - (Alum-Mag Hydroxide-Simeth Suspension 225 mg-200 mg-25 mg/5 mL 30 js13 ml, Lidocaine Liquid 2 % 10 ml, Hyoscyamine Liquid 10 ml) Route: PO; 12:05 Follow up: Response: No significant change. js13 Intake: RT: 11:28 Intubation:. js Order Results: Lab Order: Basic Metabolic Profile; SPEC'M 01/06/17 10:32 Test: GLUCOSE, FASTING; Value: 102; Range: 70-105; Units: MG/DL; Status: F Test: BLOOD UREA NITROGEN; Value: 9; Range: 7-18; Units: MG/DL; Status: F Test: CREATININE FOR GFR; Value: 0.53; Range: 0.55-1.02; Abnormal: Below low normal; Units: MG/DL; Status: F Test: GLOMERULAR FILTRATION RATE; Value: > 60.0; Range: >51; Status: F Test: SODIUM LEVEL; Value: 141; Range: 136-145; Units: MEQ/L; Status: F Test: POTASSIUM SERUM; Value: 3.7; Range: 3.5-5.1; Units: MEQ/L; Status: F Test: CHLORIDE LEVEL; Value: 105; Range: 98-107; Units: MEQ/L; Status: F Test: CARBON DIOXIDE LEVEL; Value: 26; Range: 21-32; Units: MEQ/L; Status: F Test: ANION GAP; Value: 10; Range: 8-16; Units: MEQ/L; Status: F Test: CALCIUM LEVEL; Value: 9.1; Range: 8.5-10.1; Units: MG/DL; Status: F Test Note: ; Units are mL/min/1.73 m2 Chronic Kidney Disease Staging per NKF: Stage I & II GFR >=60 Normal to Mildly Decreased Stage III GFR 30-59 Moderately Decreased Stage IV GFR 15-29 Severely Decreased Stage V GFR <15 Very Little GFR Left ESRD GFR <15 on [facility] Lab Order: CBC with Diff; SPEC'M 01/06/17 10:32 Test: WHITE BLOOD COUNT; Value: 5.5; Range: 4.0-10.0; Units: K/mm3; Status: F Test: RED BLOOD COUNT; Value: 4.38; Range: 4.00-5.40; Units: M/mm3; Status: F Test: HEMOGLOBIN; Value: 12.8; Range: 12.0-16.0; Units: g/dl; Status: F Test: HEMATOCRIT; Value: 38.9; Range: 36.0-47.0; Units: %; Status: F Test: MEAN CORPUSCULAR VOLUME; Value: 88.9; Range: 80.0-96.0; Units: fl; Status: F Test: MEAN CORPUSCULAR HEMOGLOBIN; Value: 29.3; Range: 27.0-33.0; Units: pg; Status: F Test: MEAN CORPUSCULAR HGB CONC; Value: 33.0; Range: 32.0-36.5; Units: g/dl; Status: F Test: RED CELL DISTRIBUTION WIDTH; Value: 13.6; Range: 11.5-14.5; Units: %; Status: F Test: PLATELET COUNT, AUTOMATED; Value: 233; Range: 150-450; Units: k/mm3; Status: F Test: NEUTROPHILS %; Value: 49.1; Range: 36.0-66.0; Units: %; Status: F Test: LYMPH %; Value: 41.8; Range: 24.0-44.0; Units: %; Status: F Test: MONO %; Value: 4.0; Range: 0.0-5.0; Units: %; Status: F Test: EOS %; Value: 2.9; Range: 0.0-3.0; Units: %; Status: F Test: BASO %; Value: 0.5; Range: 0.0-1.0; Units: %; Status: F Test: LARGE UNSTAINED CELL %; Value: 1.7; Range: 0.0-4.0; Units: %; Status: F Test: NEUTROPHILS #; Value: 2.7; Range: 1.8-7.7; Units: K/mm3; Status: F Test: LYMPH #; Value: 2.4; Range: 1.5-4.5; Units: K/mm3; Status: F Test: MONO #; Value: 0.2; Range: 0.0-0.8; Units: K/mm3; Status: F Test: EOS #; Value: 0.2; Range: 0.0-0.50; Units: K/mm3; Status: F Test: BASO #; Value: 0.0; Range: 0.0-0.2; Units: K/mm3; Status: F Test: LARGE UNSTAINED CELL #; Value: 0.1; Range: 0.0-0.4; Units: K/mm3; Status: F Lab Order: Cardiac Injury Profile; SPEC'M 01/06/17 10:32 Test: CPK CREATINE PHOSPHOKINASE; Value: 148; Range: 26-192; Units: U/L; Status: F Test: CK-MB VALUE MASS; Value: 1.0; Range: 0.0-3.6; Units: NG/ML; Status: F Test: MB/CK RELATIVE INDEX; Value: 0.67; Range: < OR =4; Status: F Test Note: ; DIAGNOSIS CRITERIA MMB ng/ml Relative Index (RI) NON-AMI < or = 5 N/A MACIEL ZONE > 5 < or = 4 AMI > 5 > 4 Lab Order: Troponin; [facility] 01/06/17 10:32 Test: TROPONIN I; Value: < 0.02; Range: < 0.10; Units: NG/ML; Status: F Test Note: ; Troponin I Reference Interval for [employer] LOCI: 99th Percentile= 0.00-0.045 ng/ml Risk Stratification: <= 0.10 ng/ml Decreased Risk for Adverse Clinical Events. 0.10-1.50 ng/ml Increased Risk for Adverse Clinical Events. Evaluation of additional criterion and/or repeat testing in 2-6 hours is suggested to rule out myocardial damage. >= 1.50 ng/ml Indicative of Myocardial Injury. Lab Order: Liver Profile; [facility] 01/06/17 10:32 Test: AST/SGOT; Value: 106; Range: 15-37; Abnormal: Above high normal; Units: U/L; Status: F Test: ALT/SGPT; Value: 144; Range: 12-78; Abnormal: Above high normal; Units: U/L; Status: F Test: ALKALINE PHOSPHATASE; Value: 85; Range: 45-117; Units: U/L; Status: F Test: BILIRUBIN,TOTAL; Value: 0.3; Range: 0.2-1.0; Units: MG/DL; Status: F Test: BILIRUBIN,DIRECT; Value: < 0.1; Range: 0.0-0.2; Units: MG/DL; Status: F Test: TOTAL PROTEIN; Value: 7.5; Range: 6.4-8.2; Units: GM/DL; Status: F Test: ALBUMIN; Value: 3.7; Range: 3.2-5.2; Units: GM/DL; Status: F Test: ALBUMIN/GLOBULIN RATIO; Value: 0.97; Range: 1.00-1.93; Abnormal: Below low normal; Status: F Lab Order: Lipase; [facility] 01/06/17 10:32 Test: LIPASE; Value: 412; Range: 73-393; Abnormal: Above high normal; Units: U/L; Status: F Lab Order: CARDIAC MARKER PANEL; SPEC'M 01/06/17 15:11 Test: CPK CREATINE PHOSPHOKINASE; Value: 129; Range: 26-192; Units: U/L; Status: F Test: CK-MB VALUE MASS; Value: 1.0; Range: 0.0-3.6; Units: NG/ML; Status: F Test: MB/CK RELATIVE INDEX; Value: 0.77; Range: < OR =4; Status: F Test: TROPONIN I; Value: < 0.02; Range: < 0.10; Units: NG/ML; Status: F Test Note: ; DIAGNOSIS CRITERIA MMB ng/ml Relative Index (RI) NON-AMI < or = 5 N/A MACIEL ZONE > 5 < or = 4 AMI > 5 > 4 Radiology Order: EKG-ADULT Test: EKG-ADULT REASON FOR EXAMINATION: Chest Pain; Stationary ECG Study; [facility] - ED; ; Test Date: 2017-01-06; Pat Name: JESSICA ADHIKARI Department:; Room: -; Gender: F Dumper Bulk System: hernandez; : 1960 Requested By: Jose Daniel Baker; Order Number: [id number] Reading MD: Deanne Gonsales; Measurements; Intervals [place]; Rate: 72 P: 53; OR: 154 QRS: 28; QRSD: 91 T: 42; QT: 388; QTc: 427; Interpretive Statements; SINUS RHYTHM; NSTTW ABNORMALITY; NO PRIOR FOR COMPARISON; Electronically Signed On 01-06-2017 15:23:50 EST by Deanne Gonsales; Radiology Order: portable chest Test: portable chest REASON FOR EXAMINATION: Chest Pain; clinical: Chest pain .; ; Comparison: 03/13/2012 .; ; Findings:; The mediastinum and cardiac silhouette are stable and within normal limits for; portable technique. The lung leung are clear without acute consolidation,; effusion, or pneumothorax. Skeletal structures are intact.; ; Impression:; Normal portable chest x-ray; ; ; Signed by; Khang Beck MD 01/06/2017 11:17 A; Radiology Order: ECG WITH READING ER PHYS Test: ECG WITH READING ER PHYS REASON FOR EXAMINATION: CHEST PAIN(REPEAT EKG AT 3P); Stationary ECG Study; [facility] - ED; ; Test Date: 2017-01-06; Pat Name: JESSICA ADHIKARI Department:; Room: -; Gender: F Dumper Bulk System: alejandra; : 1960 Requested By: Jose Daniel Baker; Order Number: [id number] Reading MD: Jose Daniel Littlejohn; Measurements; Intervals [place]; Rate: 67 P: 46; OR: 152 QRS: 22; QRSD: 92 T: 36; QT: 418; QTc: 443; Interpretive Statements; SINUS RHYTHM; POSSIBLE LEFT ATRIAL ENLARGEMENT; ; Electronically Signed On 01-07-2017 7:22:09 EST by Jose Daniel Littlejohn; Outcome: 15:57 Discharge ordered by Provider. pc 16:08 Discharge Assessment: Patient awake, alert and oriented x 3. No cognitive and/or sabina13 functional deficits noted. Patient verbalized understanding of disposition instructions. patient administered narcotics - no. The following High Risk Discharge criteria are identified: None. Discharged to home ambulatory. Condition: stable. Discharge instructions given to patient, Instructed on discharge instructions, follow up and referral plans. Demonstrated understanding of instructions, Pt was receptive of discharge instructions/ teaching. No special radiology studies were completed. Property :Personal belongings accompany Pt. 16:24 Patient left the ED. js13 Signatures: Dispatcher [employer] EDMS Jose Daniel Littlejohn MD MD pc Michelson, Staci RN RN Poppy Porras, Cole Ellington lg, Jennifer, RN RN jo3 Sullivan, Jennifer, RN RN js13 Shai Hdez mm15 Lorenzo Keith PCA PCA jrd Baart, Nicole nb2 Corrections: (The following items were deleted from the chart) 10:45 10:41 General: Appears in no apparent distress, Behavior is appropriate for age, js13 cooperative, srm Chart Complete MTDD
--- NOTE | 2017-01-08 22:02 | EDDOCDS ---
Physician Documentation [facility] Name: Jessica Healy Age: 56 yrs Sex: Female : 1960 Arrival Date: 01/06/2017 Time: 10:11 Bed 15 Private MD: Disposition: 01/06 15:56 Critical Care: Critical care not applicable. pc Disposition: 01/06/17 15:57 Discharged to Home/Self Care. Impression: Chest pain, unspecified, Gastro-esophageal reflux disease. - Condition is Stable. - Discharge Instructions: Nonspecific Chest Pain. - Medication Reconciliation, Local Pharmacy Hours form. - Follow up: Abhijit Mcguire MD; When: Call to arrange an appointment; Reason: Further diagnostic work-up, Recheck today's complaints, To establish care. Follow up: Williams Fontenot MD; When: Call to arrange an appointment; Reason: Continuance of care. - Problem is new. - Symptoms have improved. HPI: 10:51 This 56 yrs old Female presents to ER via Walkin/Carried/Asstd with pc complaints of Chest Pain. 10:51 The history is obtained from the patient. Symptoms began suddenly at 09:00. Symptoms pc are ongoing but are improving. Symptoms occurred while at rest. She was sitting at her desk, with no recent exertion. At its worst, the symptoms were a 5 out of 10. In the emergency department, the symptoms are a 1 out of 10. The chest pain is described as a pressure, a tightness. It is located primarily in the substernal area. The pain radiates around the left chest wall to her mid-back. The chest pain was associated with no other symptoms. 10:52 The symptoms are aggravated by nothing. The symptoms are alleviated by nothing. The pc patient's known risk factors for coronary artery disease include: diabetes, high cholesterol, hypertension. The patient has experienced a previous episode, approximately 7 years ago, and the symptoms today are exactly the same, and was diagnosed with GERD. The patient has been recently seen by their primary care provider, for a routine, regularly scheduled appointment. Historical: - Allergies: Cefzil; - Home Meds: 1. Xyzal 5 mg oral tab 1 tab once daily 2. Singulair 10 mg Oral tab 1 tab once daily 3. omeprazole 40 mg Oral cpDR once daily 4. lisinopril 10 mg Oral tab 1 tab once daily 5. metformin 750 mg Oral Tb24 3 tabs once daily 6. Effexor XR 75 mg Oral cp24 1 cap once daily 7. aspirin 81 mg Oral tbef daily 8. Trulicity 1.5 mg/0.5 mL subcutaneous pnij once wkly - PMHx: Diabetes - NIDDM: controlled; Hypertension; GERD; mood swings; Seasonal Allergies; - PSHx: Hysterectomy; Cholecystectomy; left knee surgery; - The history from nurses notes was reviewed: and I agree with what is documented. - Social history: Smoking status: Patient states former smoker of tobacco. No barriers to communication noted, The patient speaks fluent Maori, Speaks appropriately for age. - Family history: Not pertinent, Pertinent for heart disease. - : The pt / caregiver states he / she is not on anticoagulants. Home medication list is obtained from the patient. - Hospitalizations: : No recent hospitalization is reported. - Exposure Risk Screening:: None identified. - Immunization history:: All immunizations up-to-date. - Social history:: the patient is a non-smoker, the patient does not drink alcohol. 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 The cardiovascular, respiratory, pc gastrointestinal and neurological components are also addressed in the HPI. Exam: 10:52 General Appearance: alert, no acute distress. pc 10:52 ENT: ear, nose and throat normal, pharynx normal. 10:52 Neck: supple, non-tender, no masses are appreciated, no carotid bruits. 10:52 Respiratory: no respiratory distress, normal breath sounds, chest non-tender. 10:52 Cardiovascular: regular pulse rate, regular heart rhythm, normal heart sounds, equal and full pulses bilaterally. 10:52 Abdomen: soft, non-tender, no organomegaly, normal bowel sounds. 10:52 Skin: skin color is normal, warm, dry. 10:52 Extremities: The extremities have a grossly normal appearance, are non-tender, without acute ROM abnormalities. 10:52 Neuro: alert, oriented to person, place and time, cranial nerves normal as tested, no motor deficits, no sensory deficits. 10:52 Psych: normal mood. Vital Signs: 10:30 BP 159 / 80 RA Sitting; Pulse 68; Resp 18; Temp 97.9(O); Pulse Ox 100% on R/A; Weight srm 86.18 kg / 189.99 lbs (R); Height 5 ft. (152.40 cm) (R); 10:38 BP 144 / 76 (auto/); srm 10:38 Pulse 72 MON; Resp 14; Pulse Ox 95% on R/A; srm 10:53 BP 134 / 73 (auto/); js13 10:53 Pulse 70 MON; Resp 14; Pulse Ox 98% on R/A; js13 11:08 BP 127 / 69 (auto/); js13 11:08 Pulse 68 MON; Resp 14; Pulse Ox 97% on R/A; js13 11:23 BP 121 / 74 (auto/); js13 11:23 Pulse 66 MON; Resp 14; Pulse Ox 98% on R/A; js13 11:38 BP 132 / 83 (auto/); js13 11:38 Pulse 66 MON; Resp 14; Pulse Ox 95% on R/A; js13 11:53 BP 130 / 81 (auto/); js13 11:53 Pulse 64 MON; Resp 14; Pulse Ox 98% on R/A; js13 12:08 BP 161 / 91 (auto/); js13 12:08 Pulse 64 MON; Resp 14; Pulse Ox 98% on R/A; js13 12:23 BP 158 / 90 (auto/); js13 12:23 Pulse 66 MON; Resp 14; Pulse Ox 98% on R/A; js13 12:38 BP 150 / 94 (auto/); js13 12:38 Pulse 62 MON; Resp 14; Pulse Ox 94% on R/A; js13 12:53 BP 132 / 76 (auto/); js13 12:53 Pulse 66 MON; Resp 14; Pulse Ox 95% on R/A; js13 13:08 BP 131 / 77 (auto/); js13 13:08 Pulse 64 MON; Resp 14; Pulse Ox 94% on R/A; js13 13:23 BP 129 / 78 (auto/); js13 13:23 Pulse 66 MON; Resp 14; Pulse Ox 94% on R/A; js13 13:38 BP 119 / 67 (auto/); js13 13:38 Pulse 62 MON; Resp 14; Pulse Ox 94% on R/A; js13 13:53 BP 118 / 64 (auto/); js13 13:53 Pulse 72 MON; Resp 14; Pulse Ox 95% on R/A; js13 14:08 BP 121 / 67 (auto/); js13 14:08 Pulse 62 MON; Resp 14; Pulse Ox 95% on R/A; js13 14:23 BP 122 / 66 (auto/); js13 14:23 Pulse 60 MON; Resp 14; Pulse Ox 94% on R/A; js13 14:38 BP 123 / 69 (auto/); js13 14:38 Pulse 62 MON; Resp 14; Pulse Ox 95% on R/A; js13 14:53 BP 130 / 76 (auto/); js13 14:53 Pulse 64 MON; Resp 14; Pulse Ox 96% on R/A; js13 15:09 BP 123 / 75 (auto/); js13 15:09 Pulse 70 MON; Resp 14; Pulse Ox 94% on R/A; js13 15:23 BP 131 / 76 (auto/); js13 15:23 Pulse 70 MON; Resp 14; Pulse Ox 94% on R/A; js13 15:38 BP 110 / 58 (auto/); js13 15:38 Pulse 60 MON; Resp 14; Pulse Ox 96% on R/A; js13 15:53 BP 118 / 65 (auto/); js13 15:53 Pulse 62 MON; Resp 14; Pulse Ox 95% on R/A; js13 16:08 BP 122 / 65 (auto/); js13 16:08 Pulse 66 MON; Resp 14; Pulse Ox 96% on R/A; js13 10:30 Body Mass Index 37.11 (86.18 kg, 152.40 cm) srm MDM: 10:15 ECG WITH READING ER PHYS+CARDIAG ordered. EDMS 10:30 Aspirin Chewable Tablet 324 mg PO once ordered. pc 10:30 Early Childhood Education Instructor/Pulse Ox/q 30 min VS ordered. pc 10:30 IV Saline Lock ordered. pc 10:30 Rhythm Strip to chart ordered. pc 10:30 Nitrostat 0.4 mg Sublingual once ordered. pc 10:31 Basic Metabolic Profile Ordered. EDMS 10:31 CBC with Diff Ordered. EDMS 10:31 Cardiac Injury Profile Ordered. EDMS 10:31 Troponin Ordered. EDMS 10:31 Liver Profile Ordered. EDMS 10:31 Lipase Ordered. EDMS 10:32 portable chest Ordered. EDMS 10:41 Financial registration complete. lg 10:48 [facility] Payment Agreement was scanned into [employer] and attached to record. lg 10:50 Test interpretation: EKG. pc 10:52 Differential diagnosis: acute myocardial infarction, esophagitis, gastroesophageal pc reflux disease (GERD), pancreatitis, unstable angina. Plan: labs, EKG, imaging, meds. The patient was medicated with aspirin in the Emergency Department. 11:05 CBC with Diff Reviewed. pc 11:30 Basic Metabolic Profile Reviewed. pc 11:30 Liver Profile Reviewed. pc 11:30 Lipase Reviewed. pc 11:30 Cardiac Injury Profile Reviewed. pc 11:30 Troponin Reviewed. pc 11:31 GI Cocktail - (Alum-Mag Hydroxide-Simeth 30 ml, Lidocaine 10 ml, Hyoscyamine 10 ml) PO pc once; Pre-mixed 50mL unit dose ordered. 11:31 Redraw CIP &Troponin (put time in details section) ordered. pc 11:31 Repeat EKG (put time details section) ordered. pc 11:39 Repeat EKG (put time details section) complete. lbd 11:39 Redraw CIP &Troponin (put time in details section) complete. lbd 11:42 ECG WITH READING ER PHYS ordered. EDMS 11:42 CARDIAC MARKER PANEL Ordered. EDMS 15:17 Test interpretation: EKG. pc 15:53 CARDIAC MARKER PANEL Reviewed. pc 15:53 portable chest Reviewed. pc 15:56 Data reviewed: old medical records, vital signs, nurses notes, EKG(s), lab test pc results, all radiology studies and available results. Test interpretation: LAB - all labs as ordered have been reviewed, interpreted and considered in the overall management of the clinical presentation; X-RAY - interpreted by Radiologist and personally reviewed, 1 view chest no acute disease. The patient has been re-examined and re-evaluated. The patient's symptoms have markedly improved after treatment. Physician consultation: Dr. Abhijit Mcguire MD regarding patient's condition, and advises the medications/treatment as provided. and agrees with the treatment provided and advises the discharge plans as outlined. Disposition: The historical points, examination findings, and any diagnostic results supporting the provided diagnosis, were discussed with the patient or legal guardian. The need for outpatient follow up with the provider listed on their discharge instructions was discussed. They were encouraged to return to [facility], or the nearest ED, if symptoms worsen/persist, or for any other questions/concerns. EC:50 Rate is 72 beats/min. Rhythm is regular, Normal Sinus Rhythm. QRS [place] is Normal. [place] pc interval is normal. QRS interval is normal. QT interval is normal. No Q waves. T waves are Normal. No ST changes noted. Clinical impression: Normal Sinus Rhythm. 15:17 Rate is 67 beats/min. Rhythm is regular, Normal Sinus Rhythm. QRS [place] is Normal. [place] pc interval is normal. QRS interval is normal. QT interval is normal. No Q waves. T waves are Normal. No ST changes noted. Clinical impression: Normal Sinus Rhythm. Administered Medications: 10:40 Drug: Aspirin 324 mg [aspirin 81 mg chewable tablet (4 tabs)] Route: PO; [facility] 11:07 Follow up: Response: No Adverse Reaction js13 10:40 Drug: Nitrostat 0.4 mg [Nitrostat 0.4 mg sublingual tablet (1 tabs)] Route: Sublingual; [facility] 10:50 Follow up: Patient states pain stays at a 4 when it comes. Patient denies pain at this js13 time. 11:34 Drug: GI Cocktail - (Alum-Mag Hydroxide-Simeth Suspension 225 mg-200 mg-25 mg/5 mL 30 js13 ml, Lidocaine Liquid 2 % 10 ml, Hyoscyamine Liquid 10 ml) Route: PO; 12:05 Follow up: Response: No significant change. js13 Signatures: Dispatcher [employer] EDMS Jose Daniel Littlejohn MD MD pc Daly, Linda, [employer] Worker Unit lbd Collette Ruiz RN RN [facility] Poppy Davis, Reg Reg lg Kiki Leahy RN RN [id number] The chart was reviewed and I authenticate all verbal orders and agree with the evaluation and treatment provided.Attachments: 10:48 [facility] Payment Agreement lg Chart Complete MTDD
--- NOTE | 2017-01-08 22:02 | EDDOCDS ---
Physician Documentation [facility] Name: Jessica Healy Age: 56 yrs Sex: Female : 1960 Arrival Date: 01/06/2017 Time: 10:11 Bed 15 Private MD: Disposition: 01/06 15:56 Critical Care: Critical care not applicable. pc Disposition: 01/06/17 15:57 Discharged to Home/Self Care. Impression: Chest pain, unspecified, Gastro-esophageal reflux disease. - Condition is Stable. - Discharge Instructions: Nonspecific Chest Pain. - Medication Reconciliation, Local Pharmacy Hours form. - Follow up: Abhijit Mcguire MD; When: Call to arrange an appointment; Reason: Further diagnostic work-up, Recheck today's complaints, To establish care. Follow up: Williams Fontenot MD; When: Call to arrange an appointment; Reason: Continuance of care. - Problem is new. - Symptoms have improved. HPI: 10:51 This 56 yrs old Female presents to ER via Walkin/Carried/Asstd with pc complaints of Chest Pain. 10:51 The history is obtained from the patient. Symptoms began suddenly at 09:00. Symptoms pc are ongoing but are improving. Symptoms occurred while at rest. She was sitting at her desk, with no recent exertion. At its worst, the symptoms were a 5 out of 10. In the emergency department, the symptoms are a 1 out of 10. The chest pain is described as a pressure, a tightness. It is located primarily in the substernal area. The pain radiates around the left chest wall to her mid-back. The chest pain was associated with no other symptoms. 10:52 The symptoms are aggravated by nothing. The symptoms are alleviated by nothing. The pc patient's known risk factors for coronary artery disease include: diabetes, high cholesterol, hypertension. The patient has experienced a previous episode, approximately 7 years ago, and the symptoms today are exactly the same, and was diagnosed with GERD. The patient has been recently seen by their primary care provider, for a routine, regularly scheduled appointment. Historical: - Allergies: Cefzil; - Home Meds: 1. Xyzal 5 mg oral tab 1 tab once daily 2. Singulair 10 mg Oral tab 1 tab once daily 3. omeprazole 40 mg Oral cpDR once daily 4. lisinopril 10 mg Oral tab 1 tab once daily 5. metformin 750 mg Oral Tb24 3 tabs once daily 6. Effexor XR 75 mg Oral cp24 1 cap once daily 7. aspirin 81 mg Oral tbef daily 8. Trulicity 1.5 mg/0.5 mL subcutaneous pnij once wkly - PMHx: Diabetes - NIDDM: controlled; Hypertension; GERD; mood swings; Seasonal Allergies; - PSHx: Hysterectomy; Cholecystectomy; left knee surgery; - The history from nurses notes was reviewed: and I agree with what is documented. - Social history: Smoking status: Patient states former smoker of tobacco. No barriers to communication noted, The patient speaks fluent Macedonian, Speaks appropriately for age. - Family history: Not pertinent, Pertinent for heart disease. - : The pt / caregiver states he / she is not on anticoagulants. Home medication list is obtained from the patient. - Hospitalizations: : No recent hospitalization is reported. - Exposure Risk Screening:: None identified. - Immunization history:: All immunizations up-to-date. - Social history:: the patient is a non-smoker, the patient does not drink alcohol. 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 The cardiovascular, respiratory, pc gastrointestinal and neurological components are also addressed in the HPI. Exam: 10:52 General Appearance: alert, no acute distress. pc 10:52 ENT: ear, nose and throat normal, pharynx normal. 10:52 Neck: supple, non-tender, no masses are appreciated, no carotid bruits. 10:52 Respiratory: no respiratory distress, normal breath sounds, chest non-tender. 10:52 Cardiovascular: regular pulse rate, regular heart rhythm, normal heart sounds, equal and full pulses bilaterally. 10:52 Abdomen: soft, non-tender, no organomegaly, normal bowel sounds. 10:52 Skin: skin color is normal, warm, dry. 10:52 Extremities: The extremities have a grossly normal appearance, are non-tender, without acute ROM abnormalities. 10:52 Neuro: alert, oriented to person, place and time, cranial nerves normal as tested, no motor deficits, no sensory deficits. 10:52 Psych: normal mood. Vital Signs: 10:30 BP 159 / 80 RA Sitting; Pulse 68; Resp 18; Temp 97.9(O); Pulse Ox 100% on R/A; Weight srm 86.18 kg / 189.99 lbs (R); Height 5 ft. (152.40 cm) (R); 10:38 BP 144 / 76 (auto/); srm 10:38 Pulse 72 MON; Resp 14; Pulse Ox 95% on R/A; srm 10:53 BP 134 / 73 (auto/); js13 10:53 Pulse 70 MON; Resp 14; Pulse Ox 98% on R/A; js13 11:08 BP 127 / 69 (auto/); js13 11:08 Pulse 68 MON; Resp 14; Pulse Ox 97% on R/A; js13 11:23 BP 121 / 74 (auto/); js13 11:23 Pulse 66 MON; Resp 14; Pulse Ox 98% on R/A; js13 11:38 BP 132 / 83 (auto/); js13 11:38 Pulse 66 MON; Resp 14; Pulse Ox 95% on R/A; js13 11:53 BP 130 / 81 (auto/); js13 11:53 Pulse 64 MON; Resp 14; Pulse Ox 98% on R/A; js13 12:08 BP 161 / 91 (auto/); js13 12:08 Pulse 64 MON; Resp 14; Pulse Ox 98% on R/A; js13 12:23 BP 158 / 90 (auto/); js13 12:23 Pulse 66 MON; Resp 14; Pulse Ox 98% on R/A; js13 12:38 BP 150 / 94 (auto/); js13 12:38 Pulse 62 MON; Resp 14; Pulse Ox 94% on R/A; js13 12:53 BP 132 / 76 (auto/); js13 12:53 Pulse 66 MON; Resp 14; Pulse Ox 95% on R/A; js13 13:08 BP 131 / 77 (auto/); js13 13:08 Pulse 64 MON; Resp 14; Pulse Ox 94% on R/A; js13 13:23 BP 129 / 78 (auto/); js13 13:23 Pulse 66 MON; Resp 14; Pulse Ox 94% on R/A; js13 13:38 BP 119 / 67 (auto/); js13 13:38 Pulse 62 MON; Resp 14; Pulse Ox 94% on R/A; js13 13:53 BP 118 / 64 (auto/); js13 13:53 Pulse 72 MON; Resp 14; Pulse Ox 95% on R/A; js13 14:08 BP 121 / 67 (auto/); js13 14:08 Pulse 62 MON; Resp 14; Pulse Ox 95% on R/A; js13 14:23 BP 122 / 66 (auto/); js13 14:23 Pulse 60 MON; Resp 14; Pulse Ox 94% on R/A; js13 14:38 BP 123 / 69 (auto/); js13 14:38 Pulse 62 MON; Resp 14; Pulse Ox 95% on R/A; js13 14:53 BP 130 / 76 (auto/); js13 14:53 Pulse 64 MON; Resp 14; Pulse Ox 96% on R/A; js13 15:09 BP 123 / 75 (auto/); js13 15:09 Pulse 70 MON; Resp 14; Pulse Ox 94% on R/A; js13 15:23 BP 131 / 76 (auto/); js13 15:23 Pulse 70 MON; Resp 14; Pulse Ox 94% on R/A; js13 15:38 BP 110 / 58 (auto/); js13 15:38 Pulse 60 MON; Resp 14; Pulse Ox 96% on R/A; js13 15:53 BP 118 / 65 (auto/); js13 15:53 Pulse 62 MON; Resp 14; Pulse Ox 95% on R/A; js13 16:08 BP 122 / 65 (auto/); js13 16:08 Pulse 66 MON; Resp 14; Pulse Ox 96% on R/A; js13 10:30 Body Mass Index 37.11 (86.18 kg, 152.40 cm) srm MDM: 10:15 ECG WITH READING ER PHYS+CARDIAG ordered. EDMS 10:30 Aspirin Chewable Tablet 324 mg PO once ordered. pc 10:30 Casting Chipper/Pulse Ox/q 30 min VS ordered. pc 10:30 IV Saline Lock ordered. pc 10:30 Rhythm Strip to chart ordered. pc 10:30 Nitrostat 0.4 mg Sublingual once ordered. pc 10:31 Basic Metabolic Profile Ordered. EDMS 10:31 CBC with Diff Ordered. EDMS 10:31 Cardiac Injury Profile Ordered. EDMS 10:31 Troponin Ordered. EDMS 10:31 Liver Profile Ordered. EDMS 10:31 Lipase Ordered. EDMS 10:32 portable chest Ordered. EDMS 10:41 Financial registration complete. lg 10:48 [facility] Payment Agreement was scanned into [employer] and attached to record. lg 10:50 Test interpretation: EKG. pc 10:52 Differential diagnosis: acute myocardial infarction, esophagitis, gastroesophageal pc reflux disease (GERD), pancreatitis, unstable angina. Plan: labs, EKG, imaging, meds. The patient was medicated with aspirin in the Emergency Department. 11:05 CBC with Diff Reviewed. pc 11:30 Basic Metabolic Profile Reviewed. pc 11:30 Liver Profile Reviewed. pc 11:30 Lipase Reviewed. pc 11:30 Cardiac Injury Profile Reviewed. pc 11:30 Troponin Reviewed. pc 11:31 GI Cocktail - (Alum-Mag Hydroxide-Simeth 30 ml, Lidocaine 10 ml, Hyoscyamine 10 ml) PO pc once; Pre-mixed 50mL unit dose ordered. 11:31 Redraw CIP &Troponin (put time in details section) ordered. pc 11:31 Repeat EKG (put time details section) ordered. pc 11:39 Repeat EKG (put time details section) complete. lbd 11:39 Redraw CIP &Troponin (put time in details section) complete. lbd 11:42 ECG WITH READING ER PHYS ordered. EDMS 11:42 CARDIAC MARKER PANEL Ordered. EDMS 15:17 Test interpretation: EKG. pc 15:53 CARDIAC MARKER PANEL Reviewed. pc 15:53 portable chest Reviewed. pc 15:56 Data reviewed: old medical records, vital signs, nurses notes, EKG(s), lab test pc results, all radiology studies and available results. Test interpretation: LAB - all labs as ordered have been reviewed, interpreted and considered in the overall management of the clinical presentation; X-RAY - interpreted by Radiologist and personally reviewed, 1 view chest no acute disease. The patient has been re-examined and re-evaluated. The patient's symptoms have markedly improved after treatment. Physician consultation: Dr. Abhijit Mcguire MD regarding patient's condition, and advises the medications/treatment as provided. and agrees with the treatment provided and advises the discharge plans as outlined. Disposition: The historical points, examination findings, and any diagnostic results supporting the provided diagnosis, were discussed with the patient or legal guardian. The need for outpatient follow up with the provider listed on their discharge instructions was discussed. They were encouraged to return to [facility], or the nearest ED, if symptoms worsen/persist, or for any other questions/concerns. EC:50 Rate is 72 beats/min. Rhythm is regular, Normal Sinus Rhythm. QRS [place] is Normal. [place] pc interval is normal. QRS interval is normal. QT interval is normal. No Q waves. T waves are Normal. No ST changes noted. Clinical impression: Normal Sinus Rhythm. 15:17 Rate is 67 beats/min. Rhythm is regular, Normal Sinus Rhythm. QRS [place] is Normal. [place] pc interval is normal. QRS interval is normal. QT interval is normal. No Q waves. T waves are Normal. No ST changes noted. Clinical impression: Normal Sinus Rhythm. Administered Medications: 10:40 Drug: Aspirin 324 mg [aspirin 81 mg chewable tablet (4 tabs)] Route: PO; [facility] 11:07 Follow up: Response: No Adverse Reaction js13 10:40 Drug: Nitrostat 0.4 mg [Nitrostat 0.4 mg sublingual tablet (1 tabs)] Route: Sublingual; [facility] 10:50 Follow up: Patient states pain stays at a 4 when it comes. Patient denies pain at this js13 time. 11:34 Drug: GI Cocktail - (Alum-Mag Hydroxide-Simeth Suspension 225 mg-200 mg-25 mg/5 mL 30 js13 ml, Lidocaine Liquid 2 % 10 ml, Hyoscyamine Liquid 10 ml) Route: PO; 12:05 Follow up: Response: No significant change. js13 Signatures: Dispatcher [employer] EDMS Jose Daniel Littlejohn MD MD pc Daly, Linda, Central Supply Nurse Unit lbd Collette Ruiz RN RN [facility] Poppy Davis, Reg Reg lg Kiki Leahy RN RN [id number] The chart was reviewed and I authenticate all verbal orders and agree with the evaluation and treatment provided.Attachments: 10:48 [facility] Payment Agreement lg Chart Complete MTDD
== END 2017-01-06 16:24 | disposition home or self-care (01) ==
LOC: M ED 10:11
DX: K21.9 Gastro-esophageal reflux disease without esophagitis (principal); I10 Essential (primary) hypertension; E11.9 Type 2 diabetes mellitus without complications; F39 Unspecified mood [affective] disorder; Z79.899 Other long term (current) drug therapy; Z79.84 Long term (current) use of oral hypoglycemic drugs; Z79.82 Long term (current) use of aspirin; Z88.1 Allergy status to other antibiotic agents; Z87.891 Personal history of nicotine dependence

== ENCOUNTER → 2017-04-18 | Outpatient (REF) | payer BC | LOC: M LAB REF 16:11 | PROVIDERS: ATTEND Physician Assistant | DX: R50.9 Fever, unspecified (principal); J02.9 Acute pharyngitis, unspecified ==

== ENCOUNTER → 2017-11-27 | Outpatient (CLI) | payer BC | LOC: M RAD 15:48 | DX: Z12.31 Encounter for screening mammogram for malignant neoplasm of breast (principal) | CPT/HCPCS: 77067 ==

== ENCOUNTER → 2018-01-10 | Outpatient (REF) | payer BC ==
[2018-01-10 17:13] LABS: INFLUENZA A AMPLIFICATION POSITIVE (NEGATIVE); INFLUENZA B AMPLIFICATION NEGATIVE (NEGATIVE)
== END ==
LOC: M LAB REF 16:22
DX: Z11.59 Encounter for screening for other viral diseases (principal)
CPT/HCPCS: 87430

== ENCOUNTER → 2019-03-28 | Outpatient (CLI) | payer BC ==
[~2019-03-28] MED LIST changes: +PERC5TAB12 PO; -PERC5TAB6 PO; +VENL-65 PO; -VENL75TA3 PO
--- NOTE | 2019-03-28 17:27 | REPMRS ---
Patient History The patient states she had a clinical breast exam in 2018. No known family history of cancer. Took hormonal contraceptives for 4 years. Digital Mammo Screening Bilat: March 28, 2019 - Exam #: [id number] Bilateral CC and MLO view(s) were taken. Technologist: Kiki Gilbert, Technologist Prior study comparison: November 27, 2017, bilateral digital mammo screening bilat performed at [facility]. November 25, 2016, bilateral digital mammo screening bilat performed at [facility]. November 16, 2015, bilateral digital mammo screening bilat performed at [facility]. FINDINGS: The breast tissue is almost entirely fat. There has been no change in the appearance of the mammogram from the prior studies. There is no interval development of dominant mass, architectural distortion, or clustered microcalcification typical of malignancy. 3-D tomosynthesis shows no additional findings. Assessment: BI-RADS/ACR category 1 mammogram. Negative Mammogram. Recommendation Routine screening mammogram of both breasts in 1 year (for women over age 40). This patient's Lifetime Breast Cancer RIsk is estimated at 8.3 %. This mammogram was interpreted with the aid of an FDA-approved computer-aided dectection system. Electronically Signed By: Rusty Black MD 03/28/19 [id number]
== END ==
LOC: M RAD 14:22
PROVIDERS: ATTEND Internal Medicine
DX: Z12.31 Encounter for screening mammogram for malignant neoplasm of breast (principal); Z92.0 Personal history of contraception

== ENCOUNTER 2019-04-11 15:00 | Outpatient (RCR) | payer BC | END 2019-04-12 | LOC: M PT 15:00 | PROVIDERS: ATTEND Orthopaedic Surgery Orthopaedic Surgery of the Spine | DX: M54.2 Cervicalgia (principal) ==

== ENCOUNTER 2019-05-07 14:57 | Outpatient (RCR) | payer BC | END 2019-05-12 | LOC: M PT 14:57 | PROVIDERS: ATTEND Orthopaedic Surgery Orthopaedic Surgery of the Spine | DX: M54.2 Cervicalgia (principal) | CPT/HCPCS: 97110; 97140; G0283 ==

== ENCOUNTER → 2019-07-30 | Outpatient (CLI) | payer BC ==
[~2019-07-30] MED LIST changes: -METF750T PO; +METF750T36 PO
[2019-07-30 16:26] LABS: IMMUNOGLOBULIN E 9.6 IU/ML (<100); IMMUNOGLOBULIN M 38.6 MG/DL (40-230)
[2019-08-04 00:10] LABS: D001-IgE D pteronyssinus <0.10 kU/L (Class 0); E001-IgE Cat Epith/Dander < 0.10 kU/L (Class 0); E003-IGE HORSE EPITHELIA/DAND <0.10 kU/L (Class 0); E004-IGE COW DANDER <0.10 kU/L (Class 0); E005-IgE Dog Dander < 0.10 kU/L (Class 0); F002-IgE Milk < 0.10 kU/L (Class 0); F004-IgE Wheat < 0.10 kU/L (Class 0); F013-IgE Peanut < 0.10 kU/L (Class 0); F014-IgE Soybean < 0.10 kU/L (Class 0); F026-IgE Pork < 0.10 kU/L (Class 0); F027-IgE Beef < 0.10 kU/L (Class 0); F245-IgE Egg, Whole < 0.10 kU/L (Class 0); FX02-IgE Food Mix (Sea Foods) Negative (.); G002-IgE Bermuda Grass < 0.10 kU/L (Class 0); G008-IgE Kentucky Bluegrass < 0.10 kU/L (Class 0); M001-IgE Penicillium chrysogen < 0.10 kU/L (Class 0); M002 IgE Cladosporium herbaru < 0.10 kU/L (Class 0); M003 IgE Aspergillus fumigatu < 0.10 kU/L (Class 0); M006-IgE Alternaria alternata < 0.10 kU/L (Class 0); T001-IgE Maple/Box Elder < 0.10 kU/L (Class 0); T003-IgE Common Silver Birch < 0.10 kU/L (Class 0); T006-IgE Cedar, Mountain < 0.10 kU/L (Class 0); T007-IgE Oak, White < 0.10 kU/L (Class 0); T008-IgE Elm, American < 0.10 kU/L (Class 0); T015-IgE Ash, White < 0.10 kU/L (Class 0); T041-IgE Hickory, White < 0.10 kU/L (Class 0); T070-IgE White Mulberry < 0.10 kU/L (Class 0); W001-IgE Ragweed, Short < 0.10 kU/L (Class 0); W009-IgE Plantain, English < 0.10 kU/L (Class 0); W014-IgE Pigweed, Rough < 0.10 kU/L (Class 0); W018-IgE Sheep Sorrel < 0.10 kU/L (Class 0)
== END ==
LOC: M LAB 14:13
PROVIDERS: ATTEND Nurse Practitioner Family
DX: J30.1 Allergic rhinitis due to pollen (principal)

== ENCOUNTER → 2019-09-05 | Outpatient (REF) | payer BC ==
[~2019-09-05] MED LIST changes: -OMEP40CA2 PO; +OMEP40CA97 PO
[2019-09-05 12:46] LABS: APPEARANCE, URINE CLEAR (CLEAR); BACTERIA, URINE AUTO 1+ (NEGATIVE); BILIRUBIN, URINE AUTO NEGATIVE (NEGATIVE); BLOOD, URINE BLOOD NEGATIVE (NEGATIVE); COLOR, URINE YELLOW (YELLOW); GLUCOSE, URINE (UA) AUTO NEGATIVE (NEGATIVE); KETONE, URINE AUTO NEGATIVE (NEGATIVE); LEUKOCYTE ESTERASE, URINE AUTO 2+ (NEGATIVE); NITRITE, URINE AUTO NEGATIVE (NEGATIVE); PROTEIN, URINE AUTO NEGATIVE (NEGATIVE); RBC, URINE AUTO 3 /HPF (0-3); SPECIFIC GRAVITY URINE AUTO 1.011 (1.002-1.035); SQUAMOUS EPITHELIAL CELL UR AU 6 /HPF (0-6); UROBILINOGEN, URINE AUTO 0.2 mg/dL (0.0-2.0); WBC, URINE AUTO 7 /HPF (0-3)
== END ==
LOC: M LAB REF 12:20
PROVIDERS: ATTEND Internal Medicine
DX: Z01.818 Encounter for other preprocedural examination (principal)

== ENCOUNTER → 2020-06-24 | Outpatient (CLI) | payer BC ==
[~2020-06-24] MED LIST changes: -ASPI81TA85 PO; +ASPI81TA86 PO
--- NOTE | 2020-07-13 12:33 | REPMRS ---
Patient History The patient states she has not had a clinical breast exam in over a year. Patient is postmenopausal. No known family history of cancer. Took hormonal contraceptives for 4 years. Digital Woman Screen Mammo: June 24, 2020 - Exam #: [id number] Bilateral CC and MLO view(s) were taken. Technologist: Desiree Gentile, Technologist Prior study comparison: March 28, 2019, bilateral digital mammo screening bilat, performed at [facility]. November 27, 2017, bilateral digital mammo screening bilat, performed at [facility]. November 25, 2016, bilateral digital mammo screening bilat, performed at [facility]. FINDINGS: The breast tissue is almost entirely fat. The Volpara volumetric breast density category is: A. There has been no change in the appearance of the mammogram from the prior studies. There is no interval development of dominant mass, architectural distortion, or grouped microcalcification typical of malignancy. 3-D tomosynthesis shows no additional findings. Assessment: BI-RADS/ACR category 1 mammogram. Negative Mammogram. Recommendation Routine screening mammogram of both breasts in 1 year (for women over age 40). This patient's Lifetime Breast Cancer RIsk is estimated at 8.1 %. This mammogram was interpreted with the aid of an FDA-approved computer-aided dectection system. Electronically Signed By: Rusty Black MD 07/13/20 2049
== END ==
LOC: M WHC 06:35
PROVIDERS: ATTEND Internal Medicine
DX: Z12.31 Encounter for screening mammogram for malignant neoplasm of breast (principal); Z78.0 Asymptomatic menopausal state

== ENCOUNTER → 2020-12-03 | Outpatient (REF) | payer SELFPAY ==
[~2020-12-03] MED LIST changes: +LISI10TA22 PO; -LISI10TA4 PO
== END ==
LOC: M LABSMTC 11:48 → EDSTATUS 12:40
PROVIDERS: ATTEND Pediatrics
DX: Z20.822 Contact with and (suspected) exposure to COVID-19 (principal)

== ENCOUNTER → 2021-03-24 | Outpatient (CLI) | payer BC ==
--- NOTE | 2021-03-24 10:42 | REPVR ---
PROCEDURE INFORMATION: Exam: CT Maxillofacial Without Contrast Exam date and time: 03/24/2021 7:58 AM Age: 60 years old Clinical indication: Pain; Headache; Vascular; Additional info: Vascular TODD TECHNIQUE: Imaging protocol: Computed tomography images of the face without contrast. Radiation optimization: All CT scans at this facility use at least one of these dose optimization techniques: automated exposure control; mA and/or kV adjustment per patient size (includes targeted exams where dose is matched to clinical indication); or iterative reconstruction. COMPARISON: No relevant prior studies available. FINDINGS: Orbital cavity: Examination reveals bilateral globes to be normal in size and morphology. The optic nerves are normal in thickness and symmetric bilaterally. The extraocular muscles are normal in thickness and signal intensity. The retroconal fat has a normal appearance. The lacrimal glands appear normal bilaterally. Bones/joints: The bony orbital siddiqui are intact. No fractures are identified. The visualized osseous structures are unremarkable. No acute fracture or dislocation is seen. Paranasal sinuses: The visualized paranasal sinuses are clear. There are no air fluid levels to suggest acute sinusitis. Mastoid air cells: The visualized mastoid air cells are clear. Soft tissues: Unremarkable. Dental: Metallic beam hardening artifact from dental hardware limits evaluation in this region. IMPRESSION: 1. The visualized paranasal sinuses are clear. There are no air fluid levels to suggest acute sinusitis. 2. The visualized mastoid air cells are clear. Electronically signed by: Leonard Marti On 03/24/2021 10:42:15 AM
== END ==
LOC: M RAD 07:53
PROVIDERS: ATTEND Specialist
DX: G44.1 Vascular headache, not elsewhere classified (principal)

== ENCOUNTER → 2021-08-24 | Outpatient (REF) ==
[~2021-08-24] MED LIST changes: +OMEP40CA4 PO; -OMEP40CA97 PO
== END ==
LOC: M EMP 13:15
PROVIDERS: ATTEND Family Medicine
DX: Z11.52 Encounter for screening for COVID-19 (principal)

== ENCOUNTER → 2021-08-30 | Outpatient (REF) | LOC: M EMP 08:54 | PROVIDERS: ATTEND Family Medicine | DX: Z20.822 Contact with and (suspected) exposure to COVID-19 (principal) ==

== ENCOUNTER → 2021-09-21 | Outpatient (CLI) | payer BC ==
--- NOTE | 2021-09-21 14:57 | REPMRS ---
Patient History The patient states she had a clinical breast exam in July 2021. Patient is postmenopausal. Family history of breast cancer at age 87 in paternal aunt. Took hormonal contraceptives for 4 years. Tomosynthesis is performed. Volpara breast density is a. [facility] lifetime risk of breast cancer 10.7%. Patient states no breast complaints today. Patient has signed MRS History Sheet. Digital Woman Screen Mammo: September 21, 2021 - Exam #: [id number] Bilateral CC and MLO view(s) were taken. Technologist: Desiree Gentile, Technologist Prior study comparison: June 24, 2020, bilateral digital woman screen mammo performed at [facility] and [facility]. March 28, 2019, bilateral digital mammo screening bilat, performed at [facility]. FINDINGS: There are scattered fibroglandular densities. There has been no change in the appearance of the mammogram from the prior studies. There is a mild amount of residual fibroglandular tissue which is fairly symmetric. There is no interval development of dominant mass, architectural distortion, or clustered microcalcification suggestive of malignancy. Assessment: BI-RADS/ACR category 1 mammogram. Negative Mammogram. Recommendation Routine screening mammogram in 1 year (for women over age 40). This mammogram was interpreted with the aid of an FDA-approved computer-aided dectection system. Electronically Signed By: Leonid Vasquez MD 09/21/21 0630
== END ==
LOC: M WHC 13:43
PROVIDERS: ATTEND Obstetrics & Gynecology
DX: Z12.31 Encounter for screening mammogram for malignant neoplasm of breast (principal)

== ENCOUNTER → 2021-09-27 | Outpatient (CLI) | payer BC | LOC: M LAB 13:44 | PROVIDERS: ATTEND Allergy & Immunology | DX: J32.0 Chronic maxillary sinusitis (principal); R05.9 Cough, unspecified; J30.1 Allergic rhinitis due to pollen ==

== ENCOUNTER → 2021-11-18 | Outpatient (REF) ==
[2021-11-18 14:36] LABS: RSV AMPLIFICATION NEGATIVE (NEGATIVE)
== END ==
LOC: M EMP 13:31
PROVIDERS: ATTEND Family Medicine
DX: Z20.822 Contact with and (suspected) exposure to COVID-19 (principal)

== ENCOUNTER → 2021-11-18 | Outpatient (REF) | LOC: M EMP 13:41 | PROVIDERS: ATTEND Family Medicine | DX: Z20.822 Contact with and (suspected) exposure to COVID-19 (principal) ==

== ENCOUNTER 2022-03-10 06:45 | Emergency (ER) | payer BC ==
[~2022-03-10] VITALS: Ht 162.6 cm; Wt 95.0 kg
[2022-03-10 07:34] LABS: BASO % 0.6 % (0.0-1.0); EOS # 0.2 10^3/uL (0.0-0.5); EOS % 2.4 % (0.0-3.0); HEMATOCRIT 41.9 % (36.0-47.0); HEMOGLOBIN 13.9 g/dl (12.0-15.5); LYMPH % 44.2 % (24.0-44.0); MEAN CORPUSCULAR HEMOGLOBIN 29.6 pg (27.0-33.0); MEAN CORPUSCULAR HGB CONC 33.2 g/dl (32.0-36.5); MEAN CORPUSCULAR VOLUME 89.1 fl (80.0-96.0); MONO # 0.4 10^3/uL (0.0-0.8); MONO % 6.3 % (2.0-8.0); NEUTROPHILS # 3.1 10^3/uL (1.5-8.5); NEUTROPHILS % 46.1 % (36.0-66.0); PLATELET COUNT, AUTOMATED 210 10^3/uL (150-450); WHITE BLOOD COUNT 6.7 10^3/uL (4.0-10.0)
[2022-03-10 08:00] LABS: BLOOD UREA NITROGEN 13 MG/DL (7-18); CALCIUM LEVEL 9.3 MG/DL (8.5-10.1); CARBON DIOXIDE LEVEL 23 MEQ/L (21-32); CHLORIDE LEVEL 106 MEQ/L (98-107); GLOMERULAR FILTRATION RATE > 60.0 (>51); GLUCOSE, FASTING 186 MG/DL (70-100); POTASSIUM SERUM 4.2 MEQ/L (3.5-5.1); SODIUM LEVEL 136 MEQ/L (136-145)
[2022-03-10] MEDS ORDERED: ASPIRIN 81 MG CHEW TABLET PO ONE (08:20)
[2022-03-10 08:33] LABS: ALT/SGPT 76 U/L (12-78); BILIRUBIN,DIRECT 0.1 MG/DL (0.0-0.2); BILIRUBIN,TOTAL 0.4 MG/DL (0.2-1.0); LIPASE 193 U/L (73-393); TOTAL PROTEIN 7.4 GM/DL (6.4-8.2)
[2022-03-10] MEDS ORDERED: ISOVUE-370 76% 100ML VIAL As Ordered ONE (09:19)
[2022-03-10] MEDS ORDERED: HUMA100I5 (10:58)
[2022-03-10] MEDS ORDERED: LANTINJ4 (10:58)
[2022-03-10] MEDS ORDERED: DULA3PEN (10:58)
[2022-03-10] MEDS ORDERED: ATOR1TAB19 PO (10:58)
[2022-03-10] MEDS ORDERED: BREO1INH (10:58)
[2022-03-10 11:00] VITALS: BP 158/84
== END 2022-03-10 11:20 | disposition home or self-care (01) ==
LOC: M ED 06:45
DX: R07.9 Chest pain, unspecified (principal); R91.8 Other nonspecific abnormal finding of lung field; E11.9 Type 2 diabetes mellitus without complications; I10 Essential (primary) hypertension; K21.9 Gastro-esophageal reflux disease without esophagitis; Z86.16 Personal history of COVID-19; Z82.49 Family history of ischemic heart disease and other diseases of the circulatory system; Z79.82 Long term (current) use of aspirin; Z79.84 Long term (current) use of oral hypoglycemic drugs; Z79.899 Other long term (current) drug therapy; Z88.8 Allergy status to other drugs, medicaments and biological substances
CPT/HCPCS: 71045; 71275; 80048; 80076; 83690; 84484; 85025; 93005; 93041; 94760; 99285; Q9967

== ENCOUNTER → 2022-03-15 | Outpatient (REF) | payer BC ==
[~2022-03-15] MED LIST changes: +ATOR1TAB19 PO; +BREO1INH; +DULA3PEN; +HUMA100I5; +LANTINJ4
== END ==
LOC: M LAB REF 10:12
PROVIDERS: ATTEND Physician Assistant Medical
DX: R07.89 Other chest pain (principal)

== ENCOUNTER → 2022-04-07 | Outpatient (CLI) | payer BC | LOC: M RAD 12:23 | PROVIDERS: ATTEND Physician Assistant Medical | DX: R93.89 Abnormal findings on diagnostic imaging of other specified body structures (principal) ==

== ENCOUNTER → 2022-04-15 | Outpatient (REF) | payer BC ==
[2022-04-15 19:35] LABS: HEPATITIS B CORE ANTIBODY IGM NEGATIVE (NEGATIVE); HEPATITIS B SURFACE ANTIGEN NEGATIVE (NEGATIVE); HEPATITIS C VIRUS ABY INDEX 0.1 INDEX (<0.8)
== END ==
LOC: M LAB REF 16:56
PROVIDERS: ATTEND Physician Assistant Medical
DX: K76.0 Fatty (change of) liver, not elsewhere classified (principal); R93.89 Abnormal findings on diagnostic imaging of other specified body structures

== ENCOUNTER → 2022-05-09 | Outpatient (CLI) | payer BC ==
[~2022-05-09] MED LIST changes: +LIDOCAINE 1% MDV 20ML VIAL As Ordered ONE
[2022-05-09 09:25] VITALS: BP 143/80
== END ==
LOC: M IRPRO 08:20
PROVIDERS: ATTEND Surgery
DX: R59.9 Enlarged lymph nodes, unspecified (principal)

== ENCOUNTER → 2022-08-23 | Outpatient (CLI) | payer BC ==
[~2022-08-23] MED LIST changes: -LIDOCAINE 1% MDV 20ML VIAL As Ordered ONE
== END ==
LOC: M LAB 15:14
PROVIDERS: ATTEND Physician Assistant Medical
DX: M54.50 Low back pain, unspecified (principal); M47.816 Spondylosis without myelopathy or radiculopathy, lumbar region

== ENCOUNTER → 2022-09-12 | Outpatient (REF) | payer BC ==
[2022-09-12 14:14] LABS: IMMUNOGLOBULIN M 43.4 MG/DL (40-230)
[2022-09-13 18:07] LABS: ANTI-MITOCHONDRIAL ANTIBODY <20.0 Units (0.0-20.0); ANTINUCLEAR ANTIBODIES DIRECT Negative (Negative)
== END ==
LOC: M LAB REF 12:01
PROVIDERS: ATTEND Internal Medicine
DX: K76.0 Fatty (change of) liver, not elsewhere classified (principal); R93.89 Abnormal findings on diagnostic imaging of other specified body structures

== ENCOUNTER → 2022-09-22 | Outpatient (CLI) | payer BC | LOC: M WHC 16:02 | PROVIDERS: ATTEND Obstetrics & Gynecology | DX: Z12.31 Encounter for screening mammogram for malignant neoplasm of breast (principal) ==

== ENCOUNTER → 2022-09-27 | Outpatient (CLI) | payer BC | LOC: M WHC 08:13 | PROVIDERS: ATTEND Internal Medicine | DX: K76.0 Fatty (change of) liver, not elsewhere classified (principal); Z90.49 Acquired absence of other specified parts of digestive tract ==

== ENCOUNTER → 2022-10-12 | Outpatient (REF) ==
[2022-10-12 13:15] LABS: RSV AMPLIFICATION NEGATIVE (NEGATIVE)
== END ==
LOC: M LABSMTC 11:04
PROVIDERS: ATTEND Pediatrics
DX: Z20.822 Contact with and (suspected) exposure to COVID-19 (principal)

== ENCOUNTER → 2023-09-25 | Outpatient (CLI) | payer BC | LOC: M WHC 07:38 | PROVIDERS: ATTEND Obstetrics & Gynecology | DX: Z12.31 Encounter for screening mammogram for malignant neoplasm of breast (principal); Z13.820 Encounter for screening for osteoporosis; M85.89 Other specified disorders of bone density and structure, multiple sites ==

== ENCOUNTER → 2023-10-04 | Outpatient (CLI) | payer BC ==
[2023-10-04 08:08] LABS: BASO % 0.5 % (0.0-1.0); EOS # 0.2 10^3/uL (0.0-0.5); EOS % 2.9 % (0.0-3.0); HEMATOCRIT 41.5 % (36.0-47.0); HEMOGLOBIN 13.5 g/dl (12.0-15.5); LYMPH # 2.6 10^3/uL (1.5-5.0); LYMPH % 39.4 % (24.0-44.0); MEAN CORPUSCULAR HEMOGLOBIN 29.2 pg (27.0-33.0); MEAN CORPUSCULAR HGB CONC 32.5 g/dl (32.0-36.5); MEAN CORPUSCULAR VOLUME 89.6 fl (80.0-96.0); MONO # 0.4 10^3/uL (0.0-0.8); MONO % 5.4 % (2.0-8.0); NEUTROPHILS # 3.4 10^3/uL (1.5-8.5); NEUTROPHILS % 51.3 % (36.0-66.0); PLATELET COUNT, AUTOMATED 228 10^3/uL (150-450); RED BLOOD COUNT 4.63 10^6/uL (4.00-5.40); WHITE BLOOD COUNT 6.6 10^3/uL (4.0-10.0)
[2023-10-04 08:34] LABS: CREATININE, URINE 107.3 MG/DL; MAU/CREAT RATIO 4.6 MCG/MG (0.0-30.0)
[2023-10-04 08:35] LABS: HEMOGLOBIN A1c 6.8 % (4.0-6.0)
[2023-10-04 08:39] LABS: ALBUMIN 3.8 G/DL (3.2-5.2); ALKALINE PHOSPHATASE 74 U/L (46-116); ALT/SGPT 34 U/L (7.0-40); AST/SGOT 22 U/L (<34); BILIRUBIN,TOTAL 0.5 MG/DL (0.3-1.2); BLOOD UREA NITROGEN 12 MG/DL (9-23); CALCIUM LEVEL 9.4 MG/DL (8.3-10.6); CARBON DIOXIDE LEVEL 28 MMOL/L (20-31); CHLORIDE LEVEL 105 MMOL/L (98-107); CHOLESTEROL LEVEL 127 MG/DL (<200); CHOLESTEROL RISK RATIO 3.08 (<5); CREATININE FOR GFR 0.57 MG/DL (0.55-1.30); GLOMERULAR FILTRATION RATE > 60.0 (>45); GLUCOSE, FASTING 113 MG/DL (74-106); HDL CHOLESTEROL 41.2 MG/DL (>40); LDL CHOLESTEROL 60.2 MG/DL (<100); NON-HDL-C 85.8 MG/DL; POTASSIUM SERUM 4.4 MMOL/L (3.5-5.1); SODIUM LEVEL 140 MMOL/L (136-145); TOTAL PROTEIN 6.7 G/DL (5.7-8.2); TRIGLYCERIDES LEVEL 128 MG/DL (<150)
== END ==
LOC: M LAB 07:35
PROVIDERS: ATTEND Internal Medicine
DX: I10 Essential (primary) hypertension (principal); E11.65 Type 2 diabetes mellitus with hyperglycemia; E78.00 Pure hypercholesterolemia, unspecified

== ENCOUNTER → 2023-12-16 | Outpatient (CLI) | payer BC ==
[2023-12-16 09:44] LABS: INR 1.06; PROTHROMBIN TIME 13.5 SECONDS (12.5-14.5)
[2023-12-16 10:08] LABS: ALBUMIN 3.7 G/DL (3.2-5.2); ALKALINE PHOSPHATASE 77 U/L (46-116); ALT/SGPT 33 U/L (7.0-40); AST/SGOT 22 U/L (<34); BILIRUBIN,DIRECT 0.1 MG/DL (<0.4); BILIRUBIN,TOTAL 0.4 MG/DL (0.3-1.2); BLOOD UREA NITROGEN 8 MG/DL (9-23); CALCIUM LEVEL 9.3 MG/DL (8.3-10.6); CARBON DIOXIDE LEVEL 27 MMOL/L (20-31); CHLORIDE LEVEL 106 MMOL/L (98-107); CREATININE FOR GFR 0.56 MG/DL (0.55-1.30); GLOMERULAR FILTRATION RATE > 60.0 (>45); GLUCOSE, FASTING 134 MG/DL (74-106); POTASSIUM SERUM 4.2 MMOL/L (3.5-5.1); SODIUM LEVEL 140 MMOL/L (136-145)
== END ==
LOC: M LAB 09:01
PROVIDERS: ATTEND Internal Medicine Gastroenterology
DX: K74.00 Hepatic fibrosis, unspecified (principal)

== ENCOUNTER → 2024-05-14 | Outpatient (REF) | payer BC ==
[2024-05-14 21:52] LABS: APPEARANCE, URINE HAZY (CLEAR); BACTERIA, URINE AUTO 2+ (NEGATIVE); BILIRUBIN, URINE AUTO NEGATIVE (NEGATIVE); BLOOD, URINE BLOOD 3+ (NEGATIVE); COLOR, URINE YELLOW (YELLOW); GLUCOSE, URINE (UA) AUTO NEGATIVE (NEGATIVE); KETONE, URINE AUTO NEGATIVE (NEGATIVE); LEUKOCYTE ESTERASE, URINE AUTO 3+ (NEGATIVE); MUCUS, URINE SMALL (NEGATIVE); NITRITE, URINE AUTO NEGATIVE (NEGATIVE); PROTEIN, URINE AUTO 2+ mg/dL (NEGATIVE); RBC, URINE AUTO 9 /HPF (0-3); SPECIFIC GRAVITY URINE AUTO 1.004 (1.002-1.035); SQUAMOUS EPITHELIAL CELL UR AU 1 /HPF (0-6); UROBILINOGEN, URINE AUTO 0.2 mg/dL (0.0-2.0); WBC, URINE AUTO 73 /HPF (0-3)
== END ==
LOC: M LAB REF 21:17
PROVIDERS: ATTEND Physician Assistant Medical
DX: N39.0 Urinary tract infection, site not specified (principal)

== ENCOUNTER → 2024-06-10 | Outpatient (REF) | payer BC ==
[~2024-06-10] MED LIST changes: +ASPI81TA26 PO; -BREO1INH; +BREO1INH INH; +IBUP200C89 PO; -LANTINJ4; +LANTINJ4 SC; +PROA1AER2 IN; +SEMA1PEN2 SQ; +VENL150C43 PO
== END ==
LOC: M LAB REF 16:08
PROVIDERS: ATTEND Nurse Practitioner Family
DX: N39.0 Urinary tract infection, site not specified (principal)

== ENCOUNTER 2024-06-13 06:44 | Day surgery (SDC) | payer BC ==
[~2024-06-13] VITALS: Ht 162.6 cm; Wt 94.7 kg
[2024-06-13] MEDS ORDERED: LIDOCAINE 2% 100MG/5ML SDV (FOR ANES.) As Ordered ONE (07:07)
[2024-06-13] MEDS ORDERED: propofoL 500 MG/50 ML VIAL As Ordered ONE (07:08)
[2024-06-13] MEDS ORDERED: fentaNYL 100 MCG/2 ML INJECTION As Ordered ONE (07:08)
[2024-06-13] MEDS: NS 1,000 ML IV ONE (07:13)
[2024-06-13 08:10] VITALS: TEMP 96.4
[2024-06-13 08:32] VITALS: BP 113/64; O2SAT 94
== END 2024-06-13 08:34 | disposition home or self-care (01) ==
LOC: M OPP 06:44
PROVIDERS: ATTEND Surgery
DX: Z12.11 Encounter for screening for malignant neoplasm of colon (principal); Q43.8 Other specified congenital malformations of intestine; K29.70 Gastritis, unspecified, without bleeding; K31.89 Other diseases of stomach and duodenum; K30 Functional dyspepsia; E11.9 Type 2 diabetes mellitus without complications; K76.0 Fatty (change of) liver, not elsewhere classified; J45.909 Unspecified asthma, uncomplicated; Z79.02 Long term (current) use of antithrombotics/antiplatelets; Z79.1 Long term (current) use of non-steroidal anti-inflammatories (NSAID); Z79.51 Long term (current) use of inhaled steroids; Z79.82 Long term (current) use of aspirin; Z79.84 Long term (current) use of oral hypoglycemic drugs; Z79.899 Other long term (current) drug therapy
CPT/HCPCS: 43239; 45378; 88305; J3010

== ENCOUNTER → 2024-07-17 | Outpatient (REF) | payer BC | LOC: M LAB REF 16:39 | PROVIDERS: ATTEND Internal Medicine | DX: N30.00 Acute cystitis without hematuria (principal) ==

== ENCOUNTER → 2024-07-29 | Outpatient (CLI) | payer BC ==
[2024-07-29 14:45] LABS: COMPLEMENT C3 167.7 MG/DL (90.0-170.0); IMMUNOGLOBULIN A 115.8 MG/DL (40-350)
[2024-07-29 14:47] LABS: COMPLEMENT C4 24.6 MG/DL (12-36); IMMUNOGLOBULIN G 810 MG/DL (650-1600)
[2024-07-30 10:03] LABS: ALPHA 1 ANTITRYPSIN 140 mg/dL (83-199)
[2024-07-31 16:22] LABS: ALMOND IGE FOOD < 0.10 kU/L (<0.10); BERMUDA GRASS IGE < 0.10 kU/L (<0.10); BIRCH IGE < 0.10 kU/L (<0.10); CASHEW NUT IGE FOOD < 0.10 kU/L (<0.10); CODFISH IGE FOOD < 0.10 kU/L (<0.10); COMMON RAGWEED SHORT IGE < 0.10 kU/L (<0.10); COWS MILK FOOD < 0.10 kU/L (<0.10); D001 IGE D PTERONYSSINUS < 0.10 kU/L (<0.10); D002-IGE D FARINAE < 0.10 kU/L (<0.10); E001-IGE CAT DANDER < 0.10 kU/L (<0.10); E003-IGE HORSE EPITHELIA/DAND < 0.10 kU/L (<0.10); E004-IGE COW DANDER < 0.10 kU/L (<0.10); E005-IGE DOG DANDER < 0.10 kU/L (<0.10); EGG WHITE FOOD < 0.1 kU/L (<0.10); ELM IGE < 0.10 kU/L (<0.10); HAZELNUT IGE FOOD < 0.10 kU/L (<0.10); I006 IGE COCKROACH < 0.10 kU/L (<0.10); IMMUNOGLOBULIN E FOR ALLERGENS 14 kU/L (<OR=114); M002 IGE CLADOSPORIUM HERBARU < 0.10 kU/L (<0.10); M003 IGE ASPERGILLUS FUMIGATU < 0.10 kU/L (<0.10); M006 IGE ALTERNIA ALTERNATA < 0.10 kU/L (<0.10); M1-PENICILLIUM NOTATUM < 0.10 kU/L (<0.10); MOUSE URINE IGE < 0.10 kU/L (<0.10); MUGWORT IGE < 0.10 kU/L (<0.10); OAK IGE < 0.10 kU/L (<0.10); PEANUT IGE FOOD < 0.10 kU/L (<0.10); ROUGH PIGWEED IGE < 0.10 kU/L (<0.10); SALMON IGE FOOD < 0.10 kU/L (<0.10); SCALLOP IGE FOOD < 0.10 kU/L (<0.10); SESAME SEED IGE FOOD < 0.10 kU/L (<0.10); SHEEP SORREL IGE < 0.10 kU/L (<0.10); SHRIMP IGE FOOD < 0.10 kU/L (<0.10); SOYBEAN IGE FOOD < 0.10 kU/L (<0.10); SYCAMORE IGE < 0.10 kU/L (<0.10); T001-IGE MAPLE BOX ELDER < 0.10 kU/L (<0.10); T006-IGE MOUNTAIN CEDAR < 0.10 kU/L (<0.10); T014 COTTONWOOD IGE < 0.10 kU/L (<0.10); TIMOTHY GRASS IGE < 0.10 kU/L (<0.10); TUNA IGE FOOD < 0.10 kU/L (<0.10); WALNUT IGE FOOD < 0.10 kU/L (<0.10); WALNUT TREE IGE < 0.10 kU/L (<0.10); WHEAT IGE FOOD < 0.10 kU/L (<0.10); WHITE ASH IGE < 0.10 kU/L (<0.10); WHITE MULBERRY IGE < 0.10 kU/L (<0.10)
== END ==
LOC: M PLALAB 09:46
PROVIDERS: ATTEND Nurse Practitioner Family
DX: J30.1 Allergic rhinitis due to pollen (principal); J30.81 Allergic rhinitis due to animal (cat) (dog) hair and dander; J45.20 Mild intermittent asthma, uncomplicated; R05.9 Cough, unspecified; Z87.891 Personal history of nicotine dependence

== ENCOUNTER → 2024-07-29 | Outpatient (CLI) | payer BC ==
[2024-07-29 14:32] LABS: INR 0.97; PROTHROMBIN TIME 12.6 SECONDS (12.5-14.5)
[2024-07-29 14:42] LABS: ALBUMIN 4.1 G/DL (3.2-5.2); ALKALINE PHOSPHATASE 75 U/L (46-116); ALT/SGPT 38 U/L (7.0-40); AST/SGOT 22 U/L (<34); BILIRUBIN,DIRECT 0.1 MG/DL (<0.4); BILIRUBIN,TOTAL 0.3 MG/DL (0.3-1.2); BLOOD UREA NITROGEN 12 MG/DL (9-23); CALCIUM LEVEL 9.7 MG/DL (8.3-10.6); CARBON DIOXIDE LEVEL 25 MMOL/L (20-31); CHLORIDE LEVEL 107 MMOL/L (98-107); CREATININE FOR GFR 0.61 MG/DL (0.55-1.30); GLOMERULAR FILTRATION RATE > 60.0 (>45); GLUCOSE, FASTING 113 MG/DL (74-106); POTASSIUM SERUM 4.6 MMOL/L (3.5-5.1); SODIUM LEVEL 140 MMOL/L (136-145); TOTAL PROTEIN 6.9 G/DL (5.7-8.2)
[2024-07-29 14:49] LABS: HEPATITIS B SURFACE ANTIBODY NEGATIVE (POSITIVE)
[2024-07-29 15:01] LABS: HEPATITIS B SURFACE ANTIGEN NEGATIVE (NEGATIVE)
[2024-07-29 15:23] LABS: HEPATITIS C VIRUS ABY INDEX < 0.02 INDEX (<0.8)
[2024-07-30 12:58] LABS: HEPATITIS A IgG TOTAL REACTIVE (NON-REACTIVE); HEPATITIS B CORE ANTIBODY IGG NON-REACTIVE (NON-REACTIVE)
== END ==
LOC: M PLALAB 09:48
PROVIDERS: ATTEND Internal Medicine Gastroenterology
DX: K75.81 Nonalcoholic steatohepatitis (NASH) (principal); K74.60 Unspecified cirrhosis of liver

== ENCOUNTER → 2024-08-05 | Outpatient (CLI) | payer BC | LOC: M RAD 12:07 | PROVIDERS: ATTEND Internal Medicine | DX: N30.90 Cystitis, unspecified without hematuria (principal); R30.0 Dysuria ==

== ENCOUNTER → 2024-09-26 | Outpatient (CLI) | payer BC | LOC: M WHC 11:38 | PROVIDERS: ATTEND Obstetrics & Gynecology | DX: Z12.31 Encounter for screening mammogram for malignant neoplasm of breast (principal); R92.313 Mammographic fatty tissue density, bilateral breasts ==

== ENCOUNTER → 2024-10-18 | Outpatient (REF) | payer BC | LOC: M LAB REF 12:16 | PROVIDERS: ATTEND Internal Medicine | DX: K74.69 Other cirrhosis of liver (principal) ==

== ENCOUNTER → 2024-10-23 | Outpatient (REF) | payer BC | LOC: M LAB REF 16:26 | PROVIDERS: ATTEND Allergy & Immunology | DX: D80.4 Selective deficiency of immunoglobulin M [IgM] (principal) ==

== ENCOUNTER → 2024-10-24 | Outpatient (REF) | payer BC | LOC: M LAB REF 12:35 | PROVIDERS: ATTEND Nurse Practitioner Family | DX: N39.0 Urinary tract infection, site not specified (principal) ==

== ENCOUNTER → 2025-01-01 | Outpatient (REF) | payer BC | LOC: M LAB REF 12:40 | PROVIDERS: ATTEND Nurse Practitioner Family | DX: N39.0 Urinary tract infection, site not specified (principal) ==

== ENCOUNTER → 2025-01-17 | Outpatient (REF) | payer BC ==
[2025-01-17 17:12] LABS: ALBUMIN 3.8 G/DL (3.2-5.2); ALKALINE PHOSPHATASE 70 U/L (35-104); ALT/SGPT 40 U/L (7.0-40); AST/SGOT 29 U/L (<34); BILIRUBIN,TOTAL 0.4 MG/DL (0.3-1.2); BLOOD UREA NITROGEN 9 MG/DL (9-23); CALCIUM LEVEL 9.3 MG/DL (8.3-10.6); CARBON DIOXIDE LEVEL 25 MMOL/L (20-31); CHLORIDE LEVEL 104 MMOL/L (98-107); CREATININE FOR GFR 0.52 MG/DL (0.55-1.30); GLOMERULAR FILTRATION RATE > 60.0 (>45); GLUCOSE, FASTING 110 MG/DL (74-106); POTASSIUM SERUM 4.1 MMOL/L (3.5-5.1); SODIUM LEVEL 138 MMOL/L (136-145); TOTAL PROTEIN 6.8 G/DL (5.7-8.2)
[2025-01-17 17:15] LABS: BASO % 0.4 % (0.0-1.0); EOS # 0.1 10^3/uL (0.0-0.5); EOS % 1.8 % (0.0-3.0); HEMATOCRIT 38.8 % (36.0-47.0); HEMOGLOBIN 12.5 g/dl (12.0-15.5); LYMPH # 3.8 10^3/uL (1.5-5.0); LYMPH % 48.5 % (24.0-44.0); MEAN CORPUSCULAR HGB CONC 32.2 g/dl (32.0-36.5); MONO # 0.5 10^3/uL (0.0-0.8); MONO % 5.9 % (2.0-8.0); NEUTROPHILS # 3.4 10^3/uL (1.5-8.5); NEUTROPHILS % 43.1 % (36.0-66.0); PLATELET COUNT, AUTOMATED 250 10^3/uL (150-450); RED BLOOD COUNT 4.31 10^6/uL (4.00-5.40); WHITE BLOOD COUNT 7.9 10^3/uL (4.0-10.0)
[2025-01-17 17:17] LABS: HEMOGLOBIN A1c 6.3 % (4.0-6.0)
== END ==
LOC: M LAB REF 15:37
PROVIDERS: ATTEND Nurse Practitioner Family
DX: E11.65 Type 2 diabetes mellitus with hyperglycemia (principal); I10 Essential (primary) hypertension; E78.00 Pure hypercholesterolemia, unspecified

== ENCOUNTER → 2025-02-05 | Outpatient (REF) | payer BC ==
[2025-02-05 13:48] LABS: APPEARANCE, URINE CLEAR (CLEAR); BACTERIA, URINE AUTO NEGATIVE (NEGATIVE); BILIRUBIN, URINE AUTO NEGATIVE (NEGATIVE); BLOOD, URINE BLOOD NEGATIVE (NEGATIVE); COLOR, URINE STRAW (YELLOW); GLUCOSE, URINE (UA) AUTO NEGATIVE (NEGATIVE); KETONE, URINE AUTO NEGATIVE (NEGATIVE); LEUKOCYTE ESTERASE, URINE AUTO NEGATIVE (NEGATIVE); NITRITE, URINE AUTO NEGATIVE (NEGATIVE); PROTEIN, URINE AUTO NEGATIVE (NEGATIVE); RBC, URINE AUTO 0 /HPF (0-3); SPECIFIC GRAVITY URINE AUTO 1.004 (1.002-1.035); SQUAMOUS EPITHELIAL CELL UR AU 0 /HPF (0-6); UROBILINOGEN, URINE AUTO 0.2 mg/dL (0.0-2.0); WBC, URINE AUTO 0 /HPF (0-3)
== END ==
LOC: M SMT 12:48
PROVIDERS: ATTEND Physician Assistant
DX: N39.41 Urge incontinence (principal)

== ENCOUNTER → 2025-05-26 | Outpatient (CLI) | payer BC ==
[2025-05-26 14:26] LABS: APPEARANCE, URINE CLEAR (CLEAR); BACTERIA, URINE AUTO NEGATIVE (NEGATIVE); BILIRUBIN, URINE AUTO NEGATIVE (NEGATIVE); BLOOD, URINE BLOOD NEGATIVE (NEGATIVE); GLUCOSE, URINE (UA) AUTO NEGATIVE (NEGATIVE); KETONE, URINE AUTO NEGATIVE (NEGATIVE); LEUKOCYTE ESTERASE, URINE AUTO 1+ (NEGATIVE); NITRITE, URINE AUTO NEGATIVE (NEGATIVE); PROTEIN, URINE AUTO NEGATIVE (NEGATIVE); RBC, URINE AUTO 2 /HPF (0-3); SPECIFIC GRAVITY URINE AUTO 1.017 (1.002-1.035); SQUAMOUS EPITHELIAL CELL UR AU 0 /HPF (0-6); UROBILINOGEN, URINE AUTO 0.2 mg/dL (0.0-2.0); WBC, URINE AUTO 30 /HPF (0-3)
== END ==
LOC: M RAD 07:47
PROVIDERS: ATTEND Internal Medicine
DX: K76.0 Fatty (change of) liver, not elsewhere classified (principal); K74.00 Hepatic fibrosis, unspecified; R39.9 Unspecified symptoms and signs involving the genitourinary system

== ENCOUNTER → 2025-09-29 | Outpatient (CLI) | payer BC | LOC: M WHC 14:33 | PROVIDERS: ATTEND Obstetrics & Gynecology | DX: Z12.31 Encounter for screening mammogram for malignant neoplasm of breast (principal); Z13.820 Encounter for screening for osteoporosis; M85.88 Other specified disorders of bone density and structure, other site ==